=== PATIENT | male | born 1955 | race Caucasian/White ===

== ENCOUNTER → 2017-08-12 | Outpatient (CLI) | payer BC ==
[2017-08-12 14:54] LABS: ALT 28 U/L (21-72); AST 20 U/L (17-59); Cholesterol 210 mg/dL (<200); HDL Cholesterol 58 mg/dL (40-60); LDL Cholesterol,Calculated 120 mg/dL (0-99); Triglycerides 159 mg/dL (<150)
== END | disposition home or self-care (01) ==
LOC: LABWHC1 14:11
PROVIDERS: ATTEND Internal Medicine Cardiovascular Disease
DX: E78.2 Mixed hyperlipidemia (principal)
CPT/HCPCS: 36415; 80061; 84450; 84460

== ENCOUNTER 2018-05-20 08:29 | Emergency (ER) | payer BC ==
[2018-05-20 08:33] VITALS: BP 156/75; PULSE 92; RESP 22; TEMP 97.9
--- NOTE | 2018-05-20 08:48 | ED ---
Male Urogenital HPI - General Chief complaint: Urogenital Stated complaint: Unable to urinate Time Seen by Provider: 05/20/18 08:46 Source: patient, RN notes reviewed, old records reviewed Mode of arrival: ambulatory Limitations: no limitations - History of Present Illness Initial comments: This is a 63-year-old male the ER for evaluation. Patient was seen in the ER for evaluation, patient here for evaluation of inability urinate, urinary retention has history of prostate illness or issues. Patient complaining of severe abdominal pain, symptoms started last night worsening throughout the day. MD Complaint: testicle pain, other (Abdominal pain) -: hour(s) Location: abdomen Radiation: none Severity: moderate Severity scale (1-10): 7 Quality: sharp Consistency: constant Improves with: none new medication Reports: denies other symptoms - Related Data Home Medications Medication Instructions Recorded Confirmed HYDROcodone/APAP 5-325MG [[place] 1 tab PO BID PRN 12/03/15 05/20/18 5-325] Lisinopril [Zestril] 10 mg PO DAILY 12/03/15 05/20/18 Metoprolol Tartrate [Lopressor] 12.5 mg PO HS 12/03/15 05/20/18 Nitroglycerin Sl Tabs [Nitrostat] 0.4 mg SUBLINGUAL Q5M PRN 12/03/15 05/20/18 Tamsulosin HCl [Flomax] 0.4 mg PO DAILY 12/03/15 05/20/18 Ezetimibe [Zetia] 10 mg PO DAILY 05/20/18 05/20/18 Multivit-Min/FA/Lycopen/Lutein 1 tab PO DAILY 05/20/18 05/20/18 [Centrum Silver Tablet] Rosuvastatin Calcium [Crestor] 40 mg PO HS 05/20/18 05/20/18 Allergies Allergy/AdvReac Type Severity Reaction Status Date / Time atorvastatin calcium Allergy Rash/Hives Verified 05/20/18 08:48 [From Lipitor] loratadine [From Claritin] Allergy Rash/Hives Verified 05/20/18 08:48 Review of Systems ROS Statement: Those systems with pertinent positive or pertinent negative responses have been documented in the HPI. ROS Other: All systems not noted in ROS Statement are negative. Past Medical History Past Medical History: Coronary Artery Disease (CAD), Cancer, GERD/Reflux, Hyperlipidemia, Hypertension, Myocardial Infarction ([place]), Mitral Valve Prolapse (MVP), Osteoarthritis (OA), Prostate Disorder Additional Past Medical History / Comment(s): L shoulder . Has had many broken bones in the past. Hx. skin cancer. Last Myocardial Infarction Date:: 2008 History of Any Multi-Drug Resistant Organisms: None Reported Past Surgical History: Heart Catheterization With Stent, Orthopedic Surgery Additional Past Surgical History / Comment(s): R hip replacement, 2 heart stents in 2008. Skin cancer removed from back. Past Anesthesia/Blood Transfusion Reactions: No Reported Reaction Date of Last Stent Placement:: 2008 Past Psychological History: No Psychological Hx Reported Smoking Status: Former smoker Past Alcohol Use History: Daily Past Drug Use History: None Reported - Past Family History Mother Family Medical History: No Reported History General Exam Limitations: no limitations General appearance: alert, in no apparent distress Head exam: Present: atraumatic, normocephalic, normal inspection Eye exam: Present: normal appearance, PERRL, EOMI. Absent: scleral icterus, conjunctival injection, periorbital swelling ENT exam: Present: normal exam, mucous membranes moist Neck exam: Present: normal inspection. Absent: tenderness, meningismus, lymphadenopathy Respiratory exam: Present: normal lung sounds bilaterally. Absent: respiratory distress, wheezes, rales, rhonchi, stridor Cardiovascular Exam: Present: regular rate, normal rhythm, normal heart sounds. Absent: systolic murmur, diastolic murmur, rubs, gallop, clicks GI/Abdominal exam: Present: soft, normal bowel sounds. Absent: distended, tenderness, guarding, rebound, rigid Extremities exam: Present: normal inspection, full ROM, normal capillary refill. Absent: tenderness, pedal edema, joint swelling, calf tenderness Back exam: Present: normal inspection Neurological exam: Present: alert, oriented X3, CN II-XII intact Psychiatric exam: Present: normal affect, normal mood Skin exam: Present: warm, dry, intact, normal color. Absent: rash Course Vital Signs 05/20/18 08:30 Temperature 97.9 F Pulse Rate 92 Respiratory 22 Rate Blood Pressure 156/75 O2 Sat by Pulse 98 Oximetry - Reevaluation(s) Reevaluation #1: Patient has Walter placed and can be discharged home with greater than 1 L out currently, patient placed on leg bag of Medical Decision Making - Medical Decision Making 63 male the ER for evaluation. Patient does say for evaluation of abdominal pain urinary retention. The 1000 and Walter bag is replaced, patient can be discharged home - Lab Data Lab Results 05/20/18 Range/Units 09:11 Urine Color Light Yellow Urine Appearance Clear (Clear) Urine pH 5.0 (5.0-8.0) Ur Specific [place] 1.007 (1.001-1.035) Urine Protein Negative (Negative) Urine Glucose (UA) Negative (Negative) Urine Ketones Negative (Negative) Urine Blood Moderate H (Negative) Urine Nitrite Negative (Negative) Urine Bilirubin Negative (Negative) Urine Urobilinogen <2.0 (<2.0) mg/dL Ur Leukocyte Esterase Negative (Negative) Urine RBC 26 H (0-5) /hpf Urine WBC 1 (0-5) /hpf Urine Mucus Rare H (None) /hpf Disposition Clinical Impression: Acute retention of urine Disposition: HOME SELF-CARE Condition: Good Instructions: Urinary Retention in Men (ED) Is patient prescribed a controlled substance at d/c from ED?: No Referrals: Daniel Shearer MD [STAFF PHYSICIAN] - 1-2 days
[2018-05-20 09:41] LABS: Appearance,Urine Clear (Clear); Bilirubin,Urine Negative (Negative); Blood,Urine Moderate (Negative); Color,Urine Light Yellow; Glucose,Urine (UA) Negative (Negative); Ketones,Urine Negative (Negative); Leukocyte Esterase,Urine Negative (Negative); Mucus,Urine Rare /hpf; Nitrite,Urine Negative (Negative); Protein,Urine Negative (Negative); RBC,Urine 26 /hpf (0-5); Specific Gravity,Urine 1.007 (1.001-1.035); Urobilinogen,Urine <2.0 mg/dL (<2.0); WBC,Urine 1 /hpf (0-5)
== END 2018-05-20 09:44 | disposition home or self-care (01) ==
LOC: EC 08:29
DX: R33.9 Retention of urine, unspecified (principal); R10.9 Unspecified abdominal pain; N50.819 Testicular pain, unspecified; E78.5 Hyperlipidemia, unspecified; I10 Essential (primary) hypertension; I25.10 Atherosclerotic heart disease of native coronary artery without angina pectoris; M19.90 Unspecified osteoarthritis, unspecified site; N40.1 Benign prostatic hyperplasia with lower urinary tract symptoms; I25.2 Old myocardial infarction; Z87.891 Personal history of nicotine dependence; Z88.8 Allergy status to other drugs, medicaments and biological substances; Z79.899 Other long term (current) drug therapy; Z96.641 Presence of right artificial hip joint; Z85.828 Personal history of other malignant neoplasm of skin; Z98.890 Other specified postprocedural states; Z95.818 Presence of other cardiac implants and grafts
CPT/HCPCS: 51702; 81001; 99284

== ENCOUNTER → 2019-06-02 | Outpatient (CLI) | payer BC | END | disposition home or self-care (01) | LOC: LABWHC1 12:31 | PROVIDERS: ATTEND Internal Medicine Cardiovascular Disease | DX: I25.10 Atherosclerotic heart disease of native coronary artery without angina pectoris (principal) | CPT/HCPCS: 36415; 83704 ==

== ENCOUNTER → 2019-07-04 | Outpatient (CLI) | payer BC ==
[2019-07-04 13:40] LABS: HCT 46.2 % (39.0-53.0); HGB 15.3 gm/dL (13.0-17.5); MCH 29.3 pg (25.0-35.0); MCHC 33.2 g/dL (31.0-37.0); MCV 88.4 fL (80.0-100.0); Mean Platelet Volume 6.6; Platelet Count 261 k/uL (150-450); RBC 5.22 m/uL (4.30-5.90); RDW 12.3 % (11.5-15.5); WBC 8.9 k/uL (3.8-10.6)
[2019-07-04 14:04] LABS: African American GFR (CKD) >90 (>60 ml/min/1.73 sqM); Anion Gap 9 mmol/L; Blood Urea Nitrogen 16 mg/dL (9-20); Carbon Dioxide 27 mmol/L (22-30); Chloride 105 mmol/L (98-107); Non-African American GFR(CKD) 83 (>60 ml/min/1.73 sqM); Potassium 4.9 mmol/L (3.5-5.1); Sodium 141 mmol/L (137-145)
== END | disposition home or self-care (01) ==
LOC: LABPAT 12:32
PROVIDERS: ATTEND Internal Medicine Cardiovascular Disease
DX: Z01.812 Encounter for preprocedural laboratory examination (principal); I49.3 Ventricular premature depolarization
CPT/HCPCS: 36415; 80051; 82565; 84520; 85027

== ENCOUNTER 2019-07-13 10:27 | Day surgery (SDC) | payer BC ==
[2019-07-08 10:32] VITALS: BMI 27.3
[~2019-07-13 10:27] MED LIST: ALPRAZolam 0.25 MG TAB PO PRN; ALPRAZolam 0.5 MG TAB PO PRN; ASPIRIN 325 MG TAB PO STA; NITROGLYCERIN SL TABS 0.4 MG TAB SUBLINGUAL PRN; SODIUM CHLORIDE 0.9% 1,000 ML in EMPTY BAG 1 BAG IV ONE
[2019-07-13] MEDS ORDERED: SODIUM CHLORIDE 0.9% 1,000 ML IV ONE (11:10)
[2019-07-13] MEDS ORDERED: fentaNYL (PF) 50 MCG/ML 2 ML AMP ONE ×2 (11:24→12:32)
[2019-07-13] MEDS ORDERED: BENZOCAINE SPRAY 1 CAN TOPICAL ONE (11:37)
[2019-07-13] MEDS: fentaNYL (PF) 50 MCG/ML 2 ML AMP IV ONE ×2 (11:49→13:00)
[2019-07-13] MEDS ORDERED: MIDAZOLAM 2 MG/2 ML VIAL IV ONE ×3 (11:49→13:06)
[2019-07-13] MEDS ORDERED: LIDOCAINE 1% INJ 10MG/ML (20 ML MDV) ONE (12:14)
--- NOTE | 2019-07-13 12:25 | ECHOT ---
TRANSESOPHAGEAL ECHOCARDIOGRAM This transesophageal echocardiogram was performed to assess the patient's aortic regurgitation. Patient was given intravenous sedation with Versed and fentanyl and transesophageal echocardiogram was performed without any complications. Left ventricular chamber is dilated with evidence of global hypokinesia with ejection fraction of 30%-35%. Mitral valve morphology is normal. Aortic valve is sclerotic and calcified. It is suggestive of bicuspid aortic valve with normal opening. The color Doppler study shows evidence of moderate to severe aortic regurgitation. There is a mild mitral regurgitation. Left atrium is mildly enlarged. There is no evidence of thrombus in left atrial appendage. Interatrial septum is intact. There is no evidence of any PFO. There is a mild atherosclerotic plaque noted in the descending thoracic aorta as well as the arch of aorta. IMPRESSION: 1. The aortic valve is thickened and sclerotic and is suggestive of bicuspid aortic valve. There is a moderate to severe aortic regurgitation. 2. Left ventricular chamber is dilated with moderate to severe degree of global hypokinesia with estimated ejection fraction in the range of 30%-35%. 3. Mild mitral regurgitation is noted. 4. Interatrial septum is intact. There is no evidence of any patent foramen oval by saline contrast study. 5. There is mild atherosclerotic plaque noted in the descending thoracic aorta. MMODL / IJN: [id number] /
[2019-07-13] MEDS: MIDAZOLAM 2 MG/2 ML VIAL IV ONE ×2 (12:46→12:59)
[2019-07-13] MEDS ORDERED: LIDOCAINE 1% INJ 10MG/ML (20 ML MDV) SQ ONE (12:47)
[2019-07-13] MEDS ORDERED: fentaNYL (PF) 50 MCG/ML 2 ML AMP IV ONE (13:00)
[2019-07-13 13:27] LABS: O2 Sat Blood Gas 95.6 %
[2019-07-13 13:29] LABS: O2 Sat Blood Gas 71.7 %
[2019-07-13 13:31] LABS: O2 Sat Blood Gas 74.9 %
[2019-07-13] MEDS ORDERED: IOPAMIDOL-370 50ML BTL INJ ONE (13:31)
[2019-07-13] MEDS ORDERED: IOPAMIDOL-370 125ML BTL INJ ONE (13:31)
[2019-07-13] MEDS ORDERED: IV FLUID CONTINUATION 500 ML IV ONE (13:32)
--- NOTE | 2019-07-13 14:11 | CC ---
CARDIAC CATHETERIZATION REPORT This patient has a known CAD with a prior history of stent to RCA about 10 years ago. The patient was recently seen in the office with symptoms of palpitations. Patient was found that his overall left ventricular systolic function was decreased and patient had a moderate to severe aortic regurgitation. Patient underwent transesophageal echocardiogram which is suggestive of bicuspid aortic wall and moderate to severe aortic regurgitation and a right and left heart catheterization was performed. PROCEDURE: The right groin was prepped and draped in the usual manner and the skin was infiltrated with 2% Xylocaine. The right femoral artery was entered using Seldinger technique, a #6- [place] sheath was placed in. Subsequently, right femoral vein was entered using Seldinger technique with a micropuncture needle and right. #8-[place] sheath was placed in. Selective coronary angiography was then performed in multiple projections. Patient tolerated the procedure well. HEMODYNAMICS: The mean right atrial pressure is 2-3 mmHg with an A-wave of 4 and V-wave of 2. Right ventricular systolic pressure is 28 mmHg. End-diastolic pressure is 8-10 mmHg. Pulmonary capillary wedge pressure is 10 mmHg. Pulmonary artery systolic pressure is 28 and end-diastolic pressure is 10 mmHg. The pulmonary artery saturation was 95. PA saturation was 71 and right atrial saturation was 74. The cardiac output by Gen method is 4.33 and by thermodilution was 5.47. Left ventricular end-diastolic pressure was 12 mmHg prior to angiography. No gradient is noted across the aortic valve. The coronary angiography will be repeated in 5 . MMMANUELL / IJN: [id number] /
--- NOTE | 2019-07-13 14:17 | AN ---
ANGIOGRAPHY REPORT Patient's hemodynamics and the procedure were dictated before. The left main coronary artery is normal and patent. LAD is a good caliber blood vessel and gives rise to good size diagonal branch. LAD wraps around the apex. There is minimal irregularity in the proximal and mid LAD. Circumflex coronary artery is technically .but gives rise to a good size obtuse marginal branch. There is mild irregularity noted in the obtuse marginal branch. Right coronary artery is a large caliber blood vessel. It is dominant distribution and is patent at the site of prior stent placement. Aortic root injection was performed. Aortic root is dilated. Ascending aorta and aortic roots are dilated and measures about 5.1 cm 5.1 cm. There is evidence of 4+ aortic regurgitation. FINAL IMPRESSION: This study reveals only minimal coronary artery disease with a mild irregularity in LAD circumflex and right coronary artery. There is evidence of severe aortic regurgitation. Left ventricular systolic function is moderate to severely impaired with ejection fraction of 30%-35% by echocardiogram and the aortic root injection is suggestive of severe aortic valve replacement, severe aortic valve regurgitation. By transesophageal echocardiogram, patient has a bicuspid aortic valve. We will get a surgical opinion for possible aortic root replacement and aortic valve replacement. MMODL / IJN: [id number] /
[2019-07-13] MEDS ORDERED: RX INFO: IV CONTRAST WAS GIVEN 1 EACH MISC MISCELLANE PRN (14:18)
[2019-07-13] MEDS: METOPROLOL TARTRATE 25 MG TAB PO SCH (19:40)
[2019-07-13] MEDS ORDERED: TAMSULOSIN 0.4 MG CAP.ER.24H PO SCH (21:00)
[2019-07-13] MEDS ORDERED: ROSUVASTATIN CALCIUM 40 MG PO SCH (21:00)
[2019-07-14 07:50] VITALS: BP 101/61; PULSE 60; RESP 18; TEMP 97.5
[2019-07-14] MEDS: METOPROLOL TARTRATE 25 MG TAB PO SCH (08:58)
[2019-07-14] MEDS ORDERED: FINASTERIDE 5 MG TAB PO SCH (09:00)
[2019-07-14] MEDS ORDERED: EZETIMIBE 10 MG TAB PO SCH (09:00)
[2019-07-14] MEDS ORDERED: ASPIRIN 81 MG PO SCH (09:00)
[2019-07-14] MEDS ORDERED: LOSARTAN 25 MG TAB PO SCH (09:00)
--- NOTE | 2019-07-14 14:15 | P.DS ---
Providers Attending physician: Prisca Mohr Primary care physician: [facility] Course: This is a pleasant 64-year-old male who came in for elective left/right heart catheterization and DANISH to assess aortic valve. Right heart catheterization for Thursday mean atrial pressure of 2-3 mmHg, right ventricular systolic pressure was 28 mmHg, end-diastolic pressure was 8-10 mmHg, pulmonary capillary wedge pressure was 10 mmHg, pulmonary artery systolic pressure is 28 and end-diastolic pressure was 10, pulmonary artery saturation was 95, PA saturation was 71 and RA saturation was 74. Cardiac output by Gen method is 4.3 and by thermodilution was 5.47. LVEDP was 12. No gradient across the aortic valve. Left heart catheterization revealed minimal coronary artery disease with a mild irregularity in the LAD, circumflex and RCA with evidence of severe aortic regurgitation and ejection fraction 30-35%. DANISH revealed the aortic valve is thickened and sclerotic suggestive of bicuspid aortic valve, moderate to severe aortic regurgitation, left ventricular chamber is dilated with moderate to severe global hypokinesia with EF 30-35%, mild MR and mild atherosclerotic plaque noted in the descending thoracic aorta. He is seen and examined sitting up in the chair in no acute distress. He denies symptoms chest pain, shortness of breath, dizziness or palpitations. Right femoral access site clean, dry and intact with no evidence of bleeding or hematoma. Distal pulses intact and strong. Blood pressure 101/61 heart rate 60 afebrile maintaining oxygen saturation on room air. Currently maintained on Flomax, Lopressor, rosuvastatin, Zetia, losartan, aspirin, Avodart and Ativan when necessary. Stable for discharge from a cardiac perspective. We recommend having an outpatient CT angios of the chest to further assess the aorta. He has been given a written prescription for this to be done early next week. Follow-up in the office with Dr. Mohr July 26 at 10:30. Test result findings were discussed in great detail with the patient and his . Plan - Discharge Summary Discharge Rx Participant: No New Discharge Prescriptions: Continue Tamsulosin HCl [Flomax] 2 cap PO HS Metoprolol Tartrate [Lopressor] 25 mg PO BID Rosuvastatin Calcium [Crestor] 40 mg PO HS Ezetimibe [Zetia] 10 mg PO QAM Losartan [Cozaar] 25 mg PO QAM Aspirin [Adult Low Dose Aspirin EC] 81 mg PO QAM Dutasteride [Avodart] 0.5 mg PO QAM LORazepam [Ativan] 0.5 mg PO DIRECTED PRN PRN Reason: Anxiety Discharge Medication List Metoprolol Tartrate [Lopressor] 25 mg PO BID 12/03/15 [History] Tamsulosin HCl [Flomax] 2 cap PO HS 12/03/15 [History] Ezetimibe [Zetia] 10 mg PO QAM 05/20/18 [History] Rosuvastatin Calcium [Crestor] 40 mg PO HS 05/20/18 [History] Aspirin [Adult Low Dose Aspirin EC] 81 mg PO QAM 07/08/19 [History] Dutasteride [Avodart] 0.5 mg PO QAM 07/08/19 [History] LORazepam [Ativan] 0.5 mg PO DIRECTED PRN 07/08/19 [History] Losartan [Cozaar] 25 mg PO QAM 07/08/19 [History] Follow up Appointment(s)/Referral(s): Prisca Mohr MD [STAFF PHYSICIAN] - 07/26/19 10:30 am (follow up appoinment with Dr. Mohr) Patient Instructions/Handouts: Left Heart Catheterization (DC) Discharge Disposition: HOME SELF-CARE
== END 2019-07-14 11:47 | disposition home or self-care (01) ==
LOC: CATHCVL 10:27 → 1SOBS 13:34 → CATHCVL 07-14 11:47
PROVIDERS: ATTEND Internal Medicine Cardiovascular Disease
DX: I08.0 Rheumatic disorders of both mitral and aortic valves (principal); I25.10 Atherosclerotic heart disease of native coronary artery without angina pectoris; I25.5 Ischemic cardiomyopathy; I25.2 Old myocardial infarction; I70.0 Atherosclerosis of aorta; I10 Essential (primary) hypertension; E78.2 Mixed hyperlipidemia; Z95.5 Presence of coronary angioplasty implant and graft; Z79.82 Long term (current) use of aspirin; Z79.899 Other long term (current) drug therapy; Z88.8 Allergy status to other drugs, medicaments and biological substances
CPT/HCPCS: 93312; 93320; 93325; 93456; 93567; 85018; 82810; C1760; C1894 ×2; C1769 ×2; S0138; J2250; J2001; J3010; Q9967 ×2

== ENCOUNTER → 2019-07-23 | Outpatient (CLI) | payer BC ==
--- NOTE | 2019-07-24 12:16 | CT ---
EXAMINATION TYPE: CT angio chest DATE OF EXAM: 07/23/2019 COMPARISON: None HISTORY: Bicuspid aortic valve. CT DLP: 607.9 mGycm Automated exposure control for dose reduction was used. CONTRAST: CTA scan of the thorax is performed without and with IV Contrast, patient injected with 100 mL of Iso dianelys 370, pulmonary embolism protocol. MIP images are created and reviewed. 3D reconstructed images are created on an independent workstation and reviewed. CT through the aorta performed pre- and posti ntravenous contrast administration FINDINGS: There is a small hiatal hernia. Possible anterior abdominal hernia containing fat anterior to the heart The heart is enlarged. There is left ventricular dilation present. Coronary artery calci fications are present. LUNGS: The lungs are grossly clear, there is no concerning parenchymal mass or nodule identified. T here is no pleural effusion or pneumothorax seen. The tracheobronchial tree is patent. AORTA: Ascending aorta measures approximately 4.5 cm. There is motion artifact at the ascending aort a. Proximal descending aorta measures 2.9 cm. At the level of the hiatus the aorta measures 2.5 cm. MEDIASTINUM: There is satisfactory enhancement of the pulmonary artery and its branches, there is no CT evidence for pulmonary embolism. There are no greater than 1 cm hilar or mediastinal lymph nodes. No pericardial effusion is seen. OTHER: Focus of low-attenuation in the posterior right lobe of the liver shows a peripheral enhancem ent appearance, is indeterminate, possible hemangioma measuring 17 mm. Thoracic spondylosis is presen t. Multilevel vacuum phenomenon present at intervertebral disc levels. Calcified left thyroid nodule was present IMPRESSION: AORTIC ANEURYSM. CARDIOMEGALY DESCRIBED WITH CORONARY ARTERY DISEASE. ADDITIONAL FINDINGS ABOVE. I NDETERMINATE FOCUS WITHIN THE LIVER, CONSIDER FOLLOW-UP.
== END | disposition home or self-care (01) ==
LOC: RADCTMAIN 06:55
PROVIDERS: ATTEND Nurse Practitioner
DX: I71.9 Aortic aneurysm of unspecified site, without rupture (principal); I25.10 Atherosclerotic heart disease of native coronary artery without angina pectoris; I51.7 Cardiomegaly; K44.9 Diaphragmatic hernia without obstruction or gangrene; E04.1 Nontoxic single thyroid nodule; I35.0 Nonrheumatic aortic (valve) stenosis
CPT/HCPCS: 71275; Q9967

== ENCOUNTER → 2019-12-28 | Outpatient (CLI) | payer BC ==
[2019-12-29 01:25] LABS: African American GFR (CKD) 82.4 (60.0-200.0); Anion Gap 6.2 mmol/L (4.00-12.00); BUN/Creat Ratio 16.36 Ratio (12.00-20.00); Calcium 9.3 mg/dL (8.7-10.3); Carbon Dioxide 27.8 mmol/L (21.6-31.8); Magnesium 2.2 mg/dL (1.5-2.4); Non-African American GFR(CKD) 71.1 (60.0-200.0); Potassium 4.2 mmol/L (3.5-5.5)
== END | disposition home or self-care (01) ==
LOC: LABWHC1 14:37
PROVIDERS: ATTEND Nurse Practitioner Adult Health
DX: I10 Essential (primary) hypertension (principal)
CPT/HCPCS: 36415; 80048; 83735

== ENCOUNTER 2020-03-15 10:19 | Inpatient (IN) | payer BC, OTHER ==
[2020-03-15] MEDS ORDERED: SODIUM CHLORIDE 0.9% 1,000 ML IV ONE (10:28)
[2020-03-15] MEDS ORDERED: ACETAMINOPHEN TAB 325 MG TAB PO STA ×2 (10:28→12:29)
[2020-03-15 11:06] LABS: Basophils # (A) 0.1 k/uL (0-0.2); Basophils % (A) 1 %; Eosinophils # (A) 0.1 k/uL (0-0.7); Eosinophils % (A) 1 %; HCT 47.6 % (39.0-53.0); HGB 15.6 gm/dL (13.0-17.5); Lymphocytes # (A) 0.6 k/uL (1.0-4.8); Lymphocytes % (A) 8 %; MCH 26.9 pg (25.0-35.0); MCHC 32.8 g/dL (31.0-37.0); MCV 82.1 fL (80.0-100.0); Mean Platelet Volume 6.3; Monocytes # (A) 0.3 k/uL (0-1.0); Monocytes % (A) 4 %; Neutrophils # (A) 6.7 k/uL (1.3-7.7); Neutrophils % (A) 85 %; Platelet Count 163 k/uL (150-450); RBC 5.79 m/uL (4.30-5.90); RDW 14.3 % (11.5-15.5); WBC 7.9 k/uL (3.8-10.6)
[2020-03-15 11:20] LABS: Albumin 4.3 g/dL (3.5-5.0); Calcium 8.9 mg/dL (8.4-10.2); Potassium 4.3 mmol/L (3.5-5.1); Total Bilirubin 0.9 mg/dL (0.2-1.3); Total Protein 7.6 g/dL (6.3-8.2)
[2020-03-15] MEDS ORDERED: IBUPROFEN 600 MG TAB PO STA (11:39)
[2020-03-15 11:53] LABS: Appearance,Urine Clear (Clear); Bilirubin,Urine Negative (Negative); Blood,Urine Moderate (Negative); Color,Urine Yellow; Glucose,Urine (UA) Negative (Negative); Ketones,Urine 4+ (Negative); Leukocyte Esterase,Urine Negative (Negative); Mucus,Urine Moderate /hpf; Nitrite,Urine Negative (Negative); Protein,Urine 2+ (Negative); RBC,Urine 6 /hpf (0-5); Specific Gravity,Urine 1.026 (1.001-1.035); Urobilinogen,Urine <2.0 mg/dL (<2.0); WBC,Urine 1 /hpf (0-5)
[2020-03-15] MEDS ORDERED: ASPIRIN 81 MG PO STA (12:09)
[2020-03-15] MEDS ORDERED: SODIUM CHLORIDE 0.9% 500 ML 500 ML IV ONE (12:10)
[2020-03-15] MEDS: SODIUM CHLORIDE 0.9% 1,000 ML IV SCH ×2 (12:18→20:34)
--- NOTE | 2020-03-15 12:19 | ED ---
Fever HPI - General Chief Complaint: Fever Stated Complaint: Flu symptoms Time Seen by Provider: 03/15/20 10:27 Source: patient Mode of arrival: ambulatory Limitations: no limitations - History of Present Illness Initial Comments: 65-year-old male presenting today for chief complain of allover body aches, fever. Patient states he has had a fever for the past 2 days as well as achiness all over his body. Patient denies any chest pain shortness of breath he denies any rashes lesions on the body he denies any abdominal pain and rectal pain he denies any cough or upper respiratory symptoms denies sore throat or ear pain. Patient denies any recent travels or sick contacts. patient denies IVDU. Patient denies exposure to covid. Patient complaining of chills on arrival. Patient has no additional complaints. - Related Data Home Medications Medication Instructions Recorded Confirmed Tamsulosin HCl [Flomax] 0.8 mg PO HS 12/03/15 03/15/20 Ezetimibe [Zetia] 10 mg PO QAM 05/20/18 03/15/20 Rosuvastatin Calcium [Crestor] 40 mg PO HS 05/20/18 03/15/20 Dutasteride [Avodart] 0.5 mg PO QAM 07/08/19 03/15/20 LORazepam [Ativan] 0.5 mg PO BID PRN 07/08/19 03/15/20 HYDROcodone/APAP 5-325MG [[place] 1 tab PO Q6HR PRN 03/15/20 03/15/20 5-325] Valsartan [Diovan] 160 mg PO DAILY 03/15/20 03/15/20 carvediloL [Coreg] 6.25 mg PO BID 03/15/20 03/15/20 Allergies Allergy/AdvReac Type Severity Reaction Status Date / Time atorvastatin calcium Allergy Rash/Hives Verified 03/15/20 10:22 [From Lipitor] loratadine [From Claritin] Allergy Rash/Hives Verified 03/15/20 10:22 Review of Systems ROS Statement: Those systems with pertinent positive or pertinent negative responses have been documented in the HPI. ROS Other: All systems not noted in ROS Statement are negative. Past Medical History Past Medical History: Coronary Artery Disease (CAD), Cancer, GERD/Reflux, Hyperlipidemia, Hypertension, Myocardial Infarction ([place]), Mitral Valve Prolapse ([place]), Osteoarthritis (OA), Prostate Disorder Additional Past Medical History / Comment(s): L shoulder . Has had many broken bones in the past. Hx. skin cancer. Last Myocardial Infarction Date:: 2008 History of Any Multi-Drug Resistant Organisms: None Reported Past Surgical History: Coronary Bypass/CABG Additional Past Surgical History / Comment(s): R hip replacement, 2 heart stents in 2009. Skin cancer removed from back. Past Anesthesia/Blood Transfusion Reactions: No Reported Reaction Date of Last Stent Placement:: 2008 Past Psychological History: No Psychological Hx Reported Smoking Status: Never smoker Past Alcohol Use History: Daily Past Drug Use History: Marijuana - Past Family History Mother Family Medical History: No Reported History Father Family Medical History: Myocardial Infarction ([place]) General Exam - General Exam Comments Initial Comments: General: The patient is awake and alert, in no distress Eye: +3 mm pupils are equal, round and reactive to light, extra-ocular movements are intact. No nystagmus. There is normal conjunctiva bilaterally. No signs of icterus. Ears, nose, mouth and throat: There are moist mucous membranes and no oral lesions. oroph Neck: The neck is supple, there is no tenderness or JVD. Cardiovascular: There is a regular rate and rhythm. No murmur, rub or gallop is appreciated. Respiratory: Lungs are clear to auscultation, respirations are non-labored, breath sounds are equal. No wheezes, stridor, rales, or rhonchi. Gastrointestinal: Soft, non-distended, non-tender abdomen without masses or organomegaly noted. There is no rebound or guarding present. Musculoskeletal: Normal ROM, no tenderness. Strength 5/5. Sensation intact. Radial and DP pulses equal bilaterally 2+. Neurological: A&O x 3. CN II-XII intact grossly, There are no obvious motor or sensory deficits. Coordination appears grossly intact. Speech is normal. Skin: Skin is warm and dry and no rashes or lesions are noted. No LE edema. Psychiatric: Cooperative, appropriate mood & affect, normal judgment. Limitations: no limitations Course Vital Signs 03/15/20 03/15/20 10:22 10:56 Temperature 102.9 F H 102.6 F H Pulse Rate 99 102 H Respiratory 18 18 Rate Blood Pressure 162/92 138/59 O2 Sat by Pulse 97 100 Oximetry Medical Decision Making - Medical Decision Making 65yo male presenting with only complaints of all over body aches and fevers. Denies chest pain/SOB. Denies neck stiffness or URI symptoms. Entire body examined without localizing findings. Troponin elevated. No leukocytosis. I have concern for myocarditis, given fevers and flu like symptoms without any localizing symptoms. Echo ordered. EKG no acute changes. Lactic acid WNL. Patient HR and temperature have remained elevated, patient has received multiple antipyretics in the ER. Dr. Ackerman spoke with Dr. Garrett who is agreeable to admission Ventricular rate 88 bpm, SD interval 158ms, QRS catholic 112 ms, QT/QTC 360/435 ms (normal sinus there is no ST elevation or depression appreciated. There are some Q waves noted on the EKG - Lab Data Result diagrams: 03/15/20 10:39 03/15/20 10:39 Lab Results 03/15/20 03/15/20 03/15/20 Range/Units 10:39 10:39 10:39 WBC 7.9 (3.8-10.6) k/uL RBC 5.79 (4.30-5.90) m/uL Hgb 15.6 (13.0-17.5) gm/dL Hct 47.6 (39.0-53.0) % MCV 82.1 (80.0-100.0) fL MCH 26.9 (25.0-35.0) pg MCHC 32.8 (31.0-37.0) g/dL RDW 14.3 (11.5-15.5) % Plt Count 163 (150-450) k/uL Neutrophils % 85 % Lymphocytes % 8 % Monocytes % 4 % Eosinophils % 1 % Basophils % 1 % Neutrophils # 6.7 (1.3-7.7) k/uL Lymphocytes # 0.6 L (1.0-4.8) k/uL Monocytes # 0.3 (0-1.0) k/uL Eosinophils # 0.1 (0-0.7) k/uL Basophils # 0.1 (0-0.2) k/uL Sodium 133 L (137-145) mmol/L Potassium 4.3 (3.5-5.1) mmol/L Chloride 100 (98-107) mmol/L Carbon Dioxide 21 L (22-30) mmol/L Anion Gap 12 mmol/L BUN 14 (9-20) mg/dL Creatinine 1.07 (0.66-1.25) mg/dL Est GFR (CKD-EPI)AfAm 85 (>60 ml/min/1.73 sqM) Est GFR (CKD-EPI)NonAf 74 (>60 ml/min/1.73 sqM) Glucose 119 H (74-99) mg/dL Plasma Lactic Acid [place] 1.8 (0.7-2.0) mmol/L Calcium 8.9 (8.4-10.2) mg/dL Total Bilirubin 0.9 (0.2-1.3) mg/dL AST 86 H (17-59) U/L ALT 59 H (4-49) U/L Alkaline Phosphatase 51 (38-126) U/L Troponin I (0.000-0.034) ng/mL Total Protein 7.6 (6.3-8.2) g/dL Albumin 4.3 (3.5-5.0) g/dL Amylase 55 (30-110) U/L Lipase 166 (23-300) U/L Urine Color Urine Appearance (Clear) Urine pH (5.0-8.0) Ur Specific [place] (1.001-1.035) Urine Protein (Negative) Urine Glucose (UA) (Negative) Urine Ketones (Negative) Urine Blood (Negative) Urine Nitrite (Negative) Urine Bilirubin (Negative) Urine Urobilinogen (<2.0) mg/dL Ur Leukocyte Esterase (Negative) Urine RBC (0-5) /hpf Urine WBC (0-5) /hpf Urine Mucus (None) /hpf Influenza Type A RNA (Not Detectd) Influenza Type B (PCR) (Not Detectd) 03/15/20 03/15/20 03/15/20 Range/Units 10:39 10:46 11:10 WBC (3.8-10.6) k/uL RBC (4.30-5.90) m/uL Hgb (13.0-17.5) gm/dL Hct (39.0-53.0) % MCV (80.0-100.0) fL MCH (25.0-35.0) pg MCHC (31.0-37.0) g/dL RDW (11.5-15.5) % Plt Count (150-450) k/uL Neutrophils % % Lymphocytes % % Monocytes % % Eosinophils % % Basophils % % Neutrophils # (1.3-7.7) k/uL Lymphocytes # (1.0-4.8) k/uL Monocytes # (0-1.0) k/uL Eosinophils # (0-0.7) k/uL Basophils # (0-0.2) k/uL Sodium (137-145) mmol/L Potassium (3.5-5.1) mmol/L Chloride (98-107) mmol/L Carbon Dioxide (22-30) mmol/L Anion Gap mmol/L BUN (9-20) mg/dL Creatinine (0.66-1.25) mg/dL Est GFR (CKD-EPI)AfAm (>60 ml/min/1.73 sqM) Est GFR (CKD-EPI)NonAf (>60 ml/min/1.73 sqM) Glucose (74-99) mg/dL Plasma Lactic Acid [place] (0.7-2.0) mmol/L Calcium (8.4-10.2) mg/dL Total Bilirubin (0.2-1.3) mg/dL AST (17-59) U/L ALT (4-49) U/L Alkaline Phosphatase (38-126) U/L Troponin I 0.580 H* (0.000-0.034) ng/mL Total Protein (6.3-8.2) g/dL Albumin (3.5-5.0) g/dL Amylase (30-110) U/L Lipase (23-300) U/L Urine Color Yellow Urine Appearance Clear (Clear) Urine pH 6.0 (5.0-8.0) Ur Specific [place] 1.026 (1.001-1.035) Urine Protein 2+ H (Negative) Urine Glucose (UA) Negative (Negative) Urine Ketones 4+ H (Negative) Urine Blood Moderate H (Negative) Urine Nitrite Negative (Negative) Urine Bilirubin Negative (Negative) Urine Urobilinogen <2.0 (<2.0) mg/dL Ur Leukocyte Esterase Negative (Negative) Urine RBC 6 H (0-5) /hpf Urine WBC 1 (0-5) /hpf Urine Mucus Moderate H (None) /hpf Influenza Type A RNA Not Detected (Not Detectd) Influenza Type B (PCR) Not Detected (Not Detectd) Disposition Clinical Impression: Fever, Elevated troponin, Tachycardia Disposition: ADMITTED IP TO THIS [facility] Condition: Stable Is patient prescribed a controlled substance at d/c from ED?: No Referrals: Kip Garrett MD [Primary Care Provider] - 1-2 days Time of Disposition: 12:22 Decision to Admit Reason: Admit from EC Decision Date: 03/15/20 Decision Time: 12:22
[2020-03-15] MEDS ORDERED: NALOXONE 0.4 MG/ML 1 ML VIAL IV PRN (12:22)
[2020-03-15] MEDS ORDERED: PIPERACILLIN-TAZOBACTAM 3.375 GM in SODIUM CHLORIDE 0.9% 100 ML IVPB STA (12:48)
[2020-03-15] MEDS: ACETAMINOPHEN TAB 325 MG TAB PO PRN ×3 (12:55→21:22)
--- NOTE | 2020-03-15 13:51 | XR ---
EXAMINATION TYPE: XR chest 2V DATE OF EXAM: 03/15/2020 COMPARISON: NONE HISTORY: Shortness of breath TECHNIQUE: Frontal and lateral views of the chest are obtained. FINDINGS: Scattered senescent parenchymal changes noted. Hyperinflation compatible with COPD. No evidence for infiltrate. No evidence for atelectasis. Heart size is stable. Mediastinal structures are stable and grossly unremarkable. No evidence for hilar prominence. Degenerative changes dorsal spine. IMPRESSION: 1. No evidence for acute pulmonary disease.
[2020-03-15] MEDS ORDERED: LORazepam 0.5 MG TAB PO PRN (19:09)
[2020-03-15] MEDS ORDERED: HYDROcodone/APAP 5-325MG 1 EACH TAB PO PRN (19:09)
[2020-03-15] MEDS: carvediloL 6.25 MG TAB PO SCH (20:24)
[2020-03-15] MEDS ORDERED: PATIENT'S OWN (Rosuvastatin Calcium [Crestor] 40 MG Tablet) PO SCH (21:00)
[2020-03-15] MEDS ORDERED: TAMSULOSIN 0.4 MG CAP.ER.24H PO SCH (21:00)
[2020-03-16] MEDS: ACETAMINOPHEN TAB 325 MG TAB PO PRN ×2 (03:27→06:53)
[2020-03-16] MEDS: SODIUM CHLORIDE 0.9% 1,000 ML IV SCH ×2 (06:23→15:31)
[2020-03-16] MEDS: carvediloL 6.25 MG TAB PO SCH ×2 (06:30→17:28)
--- NOTE | 2020-03-16 08:24 | P.HPIM ---
History of Present Illness H&P Date: 03/16/20 Chief Complaint: Febrile. , This is a history and physical 65-year-old white male whose for the last 3 days has been struggling with spiking temperatures. He was essentially brought into the emergency room with significant fever. No delirium is noted. However given his initial evaluation and elevated troponin, he is started on appropriate workup for sepsis and coronary disease. The patient has had positive blood culture of gram-positive cocci in clusters and is started on empiric antibiotics. However, there is no overt source given that his urine and chest x-ray are nominal Review of Systems Constitutional: Denies chills, Denies fever Eyes: denies blurred vision, denies pain Ears, nose, mouth and throat: Denies headache, Denies sore throat Cardiovascular: Denies chest pain Respiratory: Denies cough Gastrointestinal: Denies abdominal pain, Denies diarrhea, Denies nausea, Denies vomiting Musculoskeletal: Denies myalgias Neurological: Denies numbness, Denies weakness Past Medical History Past Medical History: Coronary Artery Disease (CAD), Cancer, GERD/Reflux, Hyperlipidemia, Hypertension, Myocardial Infarction ([place]), Mitral Valve Prolapse (MVP), Osteoarthritis (OA), Prostate Disorder Additional Past Medical History / Comment(s): L shoulder . Has had many broken bones in the past. Hx. skin cancer. Last Myocardial Infarction Date:: 2008 History of Any Multi-Drug Resistant Organisms: None Reported Past Surgical History: Coronary Bypass/CABG, Joint Replacement Additional Past Surgical History / Comment(s): R hip replacement, 2 heart stents in 2008. Skin cancer removed from back. Artico vavle replacement and Artico artry at [facility] November 2019 Past Anesthesia/Blood Transfusion Reactions: No Reported Reaction Date of Last Stent Placement:: 2008 Past Psychological History: No Psychological Hx Reported Smoking Status: Never smoker Past Alcohol Use History: Daily Additional Past Alcohol Use History / Comment(s): Smoked only a short time as a teenager. Past Drug Use History: Marijuana - Past Family History Mother Family Medical History: No Reported History Father Family Medical History: Myocardial Infarction ([place]) Medications and Allergies Home Medications Medication Instructions Recorded Confirmed Type Tamsulosin HCl [Flomax] 0.8 mg PO HS 12/03/15 03/15/20 History Ezetimibe [Zetia] 10 mg PO QAM 05/20/18 03/15/20 History Rosuvastatin Calcium [Crestor] 40 mg PO HS 05/20/18 03/15/20 History Dutasteride [Avodart] 0.5 mg PO QAM 07/08/19 03/15/20 History LORazepam [Ativan] 0.5 mg PO BID PRN 07/08/19 03/15/20 History HYDROcodone/APAP 5-325MG [[place] 1 tab PO Q6HR PRN 03/15/20 03/15/20 History 5-325] Valsartan [Diovan] 160 mg PO DAILY 03/15/20 03/15/20 History carvediloL [Coreg] 6.25 mg PO BID 03/15/20 03/15/20 History Allergies Allergy/AdvReac Type Severity Reaction Status Date / Time atorvastatin calcium Allergy Rash/Hives Verified 03/15/20 10:22 [From Lipitor] loratadine [From Claritin] Allergy Rash/Hives Verified 03/15/20 10:22 Physical Exam Vitals: Vital Signs Temp Pulse Pulse Resp BP BP Pulse Ox 03/16/20 03:33 98 F 84 18 138/76 96 03/15/20 23:53 98 F 64 19 98/55 97 03/15/20 20:00 99.1 F 85 19 106/60 96 03/15/20 17:04 98.4 F 77 18 137/70 97 03/15/20 16:59 98.4 F 77 18 137/70 97 03/15/20 16:00 99.2 F 72 18 128/72 98 03/15/20 15:56 98.3 F 75 18 142/85 99 03/15/20 13:59 99 F 80 18 121/69 96 03/15/20 12:30 102.8 F H 89 18 143/91 96 03/15/20 10:56 102.6 F H 102 H 18 138/59 100 03/15/20 10:22 102.9 F H 99 18 162/92 97 Intake and Output 03/15/20 03/16/20 03/16/20 22:59 06:59 14:59 Intake Total 130 Output Total 700 Balance 130 -700 Intake: Oral 130 Output: Urine 700 Other: Voiding Method Toilet Toilet # Voids 2 Weight 98 kg - Constitutional General appearance: mild distress - EENT Eyes: EOMI - Neck Neck: no lymphadenopathy - Respiratory Respiratory: bilateral: CTA - Cardiovascular Rhythm: regular Heart sounds: normal: S1, S2 Abnormal Heart Sounds: no S3 Gallop - Gastrointestinal General gastrointestinal: soft, no tenderness - Integumentary Integumentary: cellulitis - Musculoskeletal Musculoskeletal: no generalized weakness - Psychiatric Psychiatric: A&O x's 3, no intact judgment & insight Results CBC & Chem 7: 03/15/20 10:39 03/15/20 10:39 Labs: Abnormal Lab Results - Last 24 Hours (Table) 03/15/20 03/15/20 03/15/20 Range/Units 10:39 10:39 10:39 Lymphocytes # 0.6 L (1.0-4.8) k/uL Sodium 133 L (137-145) mmol/L Carbon Dioxide 21 L (22-30) mmol/L Glucose 119 H (74-99) mg/dL AST 86 H (17-59) U/L ALT 59 H (4-49) U/L Troponin I 0.580 H* (0.000-0.034) ng/mL Urine Protein (Negative) Urine Ketones (Negative) Urine Blood (Negative) Urine RBC (0-5) /hpf Urine Mucus (None) /hpf 03/15/20 Range/Units 11:10 Lymphocytes # (1.0-4.8) k/uL Sodium (137-145) mmol/L Carbon Dioxide (22-30) mmol/L Glucose (74-99) mg/dL AST (17-59) U/L ALT (4-49) U/L Troponin I (0.000-0.034) ng/mL Urine Protein 2+ H (Negative) Urine Ketones 4+ H (Negative) Urine Blood Moderate H (Negative) Urine RBC 6 H (0-5) /hpf Urine Mucus Moderate H (None) /hpf Microbiology - Last 24 Hours (Table) 03/15/20 10:39 Blood Culture Gram Stain - Preliminary Blood 03/15/20 10:39 Blood Culture - Final Blood Thrombosis Risk Factor Assmnt - Choose All That Apply Each Factor Represents 1 point: Obesity (BMI >25) Each Risk Factor Represents 2 Points: Age 61-74 years Other congenital or acquired thrombophilia - If yes, enter type in comment: No Thrombosis Risk Factor Assessment Total Risk Factor Score: 3 Thrombosis Risk Factor Assessment Level: Moderate Risk Assessment and Plan (1) Sepsis Current Visit: Yes Status: Acute Code(s): A41.9 - SEPSIS, UNSPECIFIED ORGANISM SNOMED Code(s): 44170576 (2) Elevated troponin Current Visit: Yes Status: Acute Code(s): R79.89 - OTHER SPECIFIED ABNORMAL FINDINGS OF BLOOD CHEMISTRY SNOMED Code(s): 170253226 (3) Fever Current Visit: Yes Status: Acute Code(s): R50.9 - FEVER, UNSPECIFIED S NOMED Code(s): 242224078 (4) Tachycardia Current Visit: Yes Status: Acute Code(s): R00.0 - TACHYCARDIA, UNSPECIFIED SNOMED Code(s): 2839979 (5) CAD (coronary artery disease) Current Visit: Yes Status: Acute Code(s): I25.10 - ATHSCL HEART DISEASE OF [place] CORONARY ARTERY W/O ANG PCTRS SNOMED Code(s): 02940774 Plan: Elevated troponin with element of sepsis and history of valvular disease. Question need for echocardiogram. Consult cardiology and infectious disease at this time. Empiric antibiotic treatment however, this might need to be readdressed secondary to history of valvular disease. Dr. Dukes's group Route covering for the weekend. Check CBC and CMP in a.m.
[2020-03-16] MEDS ORDERED: PANTOPRAZOLE 40 MG TABLET PO SCH (08:30)
[2020-03-16] MEDS ORDERED: PIPERACILLIN-TAZOBACTAM 3.375 GM in SODIUM CHLORIDE 0.9% 100 ML IVPB SCH (08:30)
[2020-03-16] MEDS ORDERED: EZETIMIBE 10 MG TAB PO SCH (09:00)
[2020-03-16] MEDS ORDERED: FINASTERIDE 5 MG TAB PO SCH (09:00)
[2020-03-16] MEDS ORDERED: VALSARTAN 160 MG TAB PO SCH (09:00)
[2020-03-16] MEDS ORDERED: HEPARIN SODIUM,PORCINE 5,000 UNIT/ML 1 ML VIAL SQ SCH (09:00)
--- NOTE | 2020-03-16 10:46 | P.CRDCN ---
History of Present Illness Consult date: 03/16/20 Reason for Consult (text): Recent aortic valve replacement Chief complaint: Body aches, fever and chills History of present illness: This is a pleasant 65-year-old gentleman who follows regularly with Dr. Raman in the office. He has a known history of coronary artery disease with prior myocardial infarction and stenting of the RCA, hypertension, hyperlipidemia, ischemic cardiomyopathy, he has a history of bicuspid aortic valve with severe aortic root regurg, patient underwent aortic valve replacement with a bioprosthetic aortic valve as well as replacement of ascending aorta at [facility] in November of this year, history also of EtOH use. Patient presents to the hospital on this occasion with symptoms of 3 day duration of severe body aches, chills and fever. His temperature on arrival here was 102.6. Blood cultures came back positive for gram-positive cocci in clusters. Influenza A and B as well as Covid testing were negative. White blood cell count 7.9, hemoglobin 15.6, platelet count 163. Sodium 133, potassium 4.3, BUN 14, creatinine 1.0. AST 86, ALT 59, BNP 1650 and troponin 0.5. At the time of my examination this morning, patient continues to complain of generalized body aches. Prior to these symptoms starting 3 days ago, the patient was spiking up to 5 miles per day. Blood pressure 116/70 with a heart rate in the 80s, 97% on room air, temperature this morning 100.7. Past Medical History Past Medical History: Coronary Artery Disease (CAD), Cancer, GERD/Reflux, Hyperlipidemia, Hypertension, Myocardial Infarction ([place]), Mitral Valve Prolapse (MVP), Osteoarthritis (OA), Prostate Disorder Additional Past Medical History / Comment(s): L shoulder . Has had many broken bones in the past. Hx. skin cancer. Last Myocardial Infarction Date:: 2008 History of Any Multi-Drug Resistant Organisms: None Reported Past Surgical History: Coronary Bypass/CABG, Joint Replacement Additional Past Surgical History / Comment(s): R hip replacement, 2 heart stents in 2008. Skin cancer removed from back. Artico vavle replacement and Artico artry at [facility] November 2019 Past Anesthesia/Blood Transfusion Reactions: No Reported Reaction Date of Last Stent Placement:: 2008 Past Psychological History: No Psychological Hx Reported Smoking Status: Never smoker Past Alcohol Use History: Daily Additional Past Alcohol Use History / Comment(s): Smoked only a short time as a teenager. Past Drug Use History: Marijuana - Past Family History Mother Family Medical History: No Reported History Father Family Medical History: Myocardial Infarction ([place]) Medications and Allergies Home Medications Medication Instructions Recorded Confirmed Type Tamsulosin HCl [Flomax] 0.8 mg PO HS 12/03/15 03/15/20 History Ezetimibe [Zetia] 10 mg PO QAM 05/20/18 03/15/20 History Rosuvastatin Calcium [Crestor] 40 mg PO HS 05/20/18 03/15/20 History Dutasteride [Avodart] 0.5 mg PO QAM 07/08/19 03/15/20 History LORazepam [Ativan] 0.5 mg PO BID PRN 07/08/19 03/15/20 History HYDROcodone/APAP 5-325MG [[place] 1 tab PO Q6HR PRN 03/15/20 03/15/20 History 5-325] Valsartan [Diovan] 160 mg PO DAILY 03/15/20 03/15/20 History carvediloL [Coreg] 6.25 mg PO BID 03/15/20 03/15/20 History Allergies Allergy/AdvReac Type Severity Reaction Status Date / Time atorvastatin calcium Allergy Rash/Hives Verified 03/15/20 10:22 [From Lipitor] loratadine [From Claritin] Allergy Rash/Hives Verified 03/15/20 10:22 Physical Exam Vitals: Vital Signs Temp Pulse Pulse Resp BP BP Pulse Ox 03/16/20 08:29 100.7 F H 82 16 116/75 97 03/16/20 03:33 98 F 84 18 138/76 96 03/15/20 23:53 98 F 64 19 98/55 97 03/15/20 20:00 99.1 F 85 19 106/60 96 03/15/20 17:04 98.4 F 77 18 137/70 97 03/15/20 16:59 98.4 F 77 18 137/70 97 03/15/20 16:00 99.2 F 72 18 128/72 98 03/15/20 15:56 98.3 F 75 18 142/85 99 03/15/20 13:59 99 F 80 18 121/69 96 03/15/20 12:30 102.8 F H 89 18 143/91 96 03/15/20 10:56 102.6 F H 102 H 18 138/59 100 Intake and Output 03/15/20 03/16/20 03/16/20 22:59 06:59 14:59 Intake Total 130 Output Total 700 Balance 130 -700 Intake: Oral 130 Output: Urine 700 Other: Voiding Method Toilet Toilet # Voids 2 3 # Bowel Movements 5 Weight 98 kg PHYSICAL EXAMINATION: GENERAL: 65-year-old gentleman in no acute distress at the time of my examination HEENT: Head is atraumatic, normocephalic. Pupils equal, round. Sclera anicteric. Conjunctiva are clear. Mucous membranes of the mouth are moist. Neck is supple. There is no elevated jugular venous pressure. No carotid bruit is heard. HEART EXAMINATION: Heart S1, S2 normal. No murmur or gallop heard. CHEST EXAMINATION: Lungs are clear to auscultation and precussion. No chest wall tenderness is noted on palpation or with deep breathing. ABDOMEN: Soft, nontender. Bowel sounds are heard. No organomegaly noted. EXTREMITIES: 2+ peripheral pulses with no evidence of peripheral edema and no calf tenderness noted. NEUROLOGIC patient is awake, alert and oriented 3 . Results 03/15/20 10:39 03/15/20 10:39 Cardiac Enzymes 03/15/20 03/15/20 03/16/20 Range/Units 10:39 10:39 08:41 AST 86 H (17-59) U/L Troponin I 0.580 H* 2.170 H* (0.000-0.034) ng/mL CBC 03/15/20 Range/Units 10:39 WBC 7.9 (3.8-10.6) k/uL RBC 5.79 (4.30-5.90) m/uL Hgb 15.6 (13.0-17.5) gm/dL Hct 47.6 (39.0-53.0) % Plt Count 163 (150-450) k/uL Comprehensive Metabolic Panel 03/15/20 Range/Units 10:39 Sodium 133 L (137-145) mmol/L Potassium 4.3 (3.5-5.1) mmol/L Chloride 100 (98-107) mmol/L Carbon Dioxide 21 L (22-30) mmol/L BUN 14 (9-20) mg/dL Creatinine 1.07 (0.66-1.25) mg/dL Glucose 119 H (74-99) mg/dL Calcium 8.9 (8.4-10.2) mg/dL AST 86 H (17-59) U/L ALT 59 H (4-49) U/L Alkaline Phosphatase 51 (38-126) U/L Total Protein 7.6 (6.3-8.2) g/dL Albumin 4.3 (3.5-5.0) g/dL Current Medications Generic Name Dose Route Start Last Admin Trade Name Freq PRN Reason Stop Dose Admin Acetaminophen 650 mg 03/15/20 12:49 03/16/20 06:53 Acetaminophen Tab 325 Mg Tab PO 650 mg Q4H PRN Administration Fever Hydrocodone Bitart/Acetaminophen 1 each 03/15/20 19:09 Hydrocodone/Apap 5-325mg 1 Each Tab PO Q6HR PRN Pain Carvedilol 6.25 mg 03/15/20 20:00 03/16/20 06:30 Carvedilol 6.25 Mg Tab PO 6.25 mg BID-W/MEALS LORNE Administration Ezetimibe 10 mg 03/16/20 09:00 Ezetimibe 10 Mg Tab PO QAM LORNE Finasteride 5 mg 03/16/20 09:00 Finasteride 5 Mg Tab PO QAM LORNE Heparin Sodium (Porcine) 5,000 unit 03/16/20 09:00 Heparin Sodium,Porcine 5,000 Unit/Ml 1 Ml Vial SQ Q12HR LORNE Sodium Chloride 1,000 mls @ 100 mls/hr 03/15/20 10:30 03/16/20 06:23 Saline 0.9% IV Not Given .Q10H LORNE Piperacillin Sod/Tazobactam 100 mls @ 25 mls/hr 03/16/20 08:30 03/16/20 09:00 Sod 3.375 gm/ Sodium Chloride IVPB 25 mls/hr Q8HR LORNE Administration Lorazepam 0.5 mg 03/15/20 19:09 Lorazepam 0.5 Mg Tab PO BID PRN Anxiety Naloxone HCl 0.2 mg 03/15/20 12:22 Naloxone 0.4 Mg/Ml 1 Ml Vial IV Q2M PRN Opioid Reversal Patient's Own ( 40 mg 03/15/20 21:00 03/15/20 20:24 Rosuvastatin Calcium PO Not Given [Crestor] 40 Mg HS LORNE Tablet) Pantoprazole Sodium 40 mg 03/16/20 08:30 Pantoprazole 40 Mg Tablet PO AC-BRKFST LORNE Tamsulosin HCl 0.8 mg 03/15/20 21:00 03/15/20 20:24 Tamsulosin 0.4 Mg Cap.Er.24h PO 0.8 mg HS LORNE Administration Valsartan 160 mg 03/16/20 09:00 Valsartan 160 Mg Tab PO DAILY LORNE Intake and Output 03/15/20 03/16/20 03/16/20 22:59 06:59 14:59 Intake Total 130 Output Total 700 Balance 130 -700 Intake: Oral 130 Output: Urine 700 Other: Voiding Method Toilet Toilet # Voids 2 3 # Bowel Movements 5 Weight 98 kg 03/15/20 10:39 03/15/20 10:39 EKG Interpretations (text) EKG shows a normal sinus rhythm with no acute changes. Assessment and Plan Plan: Assessment and plan #1 generalized body aches with associated fever and chills, temperature up to 102.8. Blood cultures positive for gram-positive cocci in clusters #2 recent aortic valve replacement with bioprosthetic aortic valve and replacement of ascending aorta in November of this year #3 coronary artery disease history with prior RCA stenting and myocardial infarction #4 hypertension #5 hyperlipidemia #6 diabetes #7 ischemic cardiomyopathy Plan We will obtain an echocardiogram with Doppler study. Patient has also been advised to undergo transesophageal echocardiographic study, we will speak with Dr. Raman regarding the timing of this. Further recommendations then will be made. DNP note has been reviewed, I agree with a documented findings and plan of care. Patient was seen and examined.
[2020-03-16] MEDS ORDERED: ACETAMINOPHEN IV (For NPO) 1,000 MG in EMPTY BAG 1 BAG IVPB STA (11:40)
[2020-03-16] MEDS ORDERED: VANCOMYCIN IV PER PHARMACY 1 EACH MISC MISCELLANE PRN (11:55)
[2020-03-16] MEDS ORDERED: fentaNYL (PF) 50 MCG/ML 2 ML AMP ONE (12:04)
[2020-03-16] MEDS ORDERED: IV FLUID CONTINUATION 1,000 ML IV ONE (12:17)
[2020-03-16] MEDS ORDERED: BENZOCAINE SPRAY 1 CAN MUCOUS MEM ONE (12:17)
[2020-03-16] MEDS ORDERED: MIDAZOLAM 2 MG/2 ML VIAL IVP ONE (12:24)
[2020-03-16] MEDS: fentaNYL (PF) 50 MCG/ML 2 ML AMP IVP ONE ×2 (12:38→12:47)
[2020-03-16] MEDS: MIDAZOLAM 2 MG/2 ML VIAL IVP ONE ×2 (12:38→12:47)
[2020-03-16 13:50] VITALS: RESP 16
--- NOTE | 2020-03-16 14:15 | ECHOT ---
TRANSESOPHAGEAL ECHOCARDIOGRAM DATE OF SERVICE: 03/16/2020 PERFORMING PHYSICIAN: Logan Woodruff MD. PROCEDURE PERFORMED: Transesophageal echocardiogram. INDICATION: Rule out infective endocarditis in this 65-year-old gentleman with history of aortic valve replacement using bioprosthetic valve. COMPLICATION: None. LEVEL OF SEDATION: Moderate with sedation length of 15 minutes. PROCEDURE DESCRIPTION: After obtaining an informed consent, the patient was brought to the cardiac laborer pie [facility]ery. The pulse oximetry and heart rate monitors were attached to the patient. Subsequently, the transesophageal echocardiogram probe was advanced through the bite guard to the mid esophagus where a 2D echocardiogram images as well as color Doppler images of various cardiac structures were obtained from multiple angles. The transesophageal echocardiogram was performed using 2D echo images, color Doppler, pulse Doppler, and continuous-wave Dopplers as well. The procedure was completed without any complication. FINDINGS: The left ventricular dimension and systolic function appear to be within normal limits. The ejection fraction appeared to be in the range of 50% to 55%. The right ventricle appeared to be within normal limits for dimension. The left atrium appeared to be mildly dilated. The aortic valve is bioprosthetic valve. An echodensity was identified on the aortic side of the aortic valve quite concerning for vegetation. Also, there was an echolucent space surrounding the aortic valve concerning for abscess as well. The mitral valve is mildly thickened with mild to moderate MR. The tricuspid valve was not well visualized. No evidence of vegetations identified on either mitral or tricuspid valve. The pulmonic valve also seems to be free from any vegetations. Please note that there was significant turbulence in flow was identified on across the aortic valve. CONCLUSION: 1. Normal left ventricular dimension and systolic function with ejection fraction around 55%. 2. Normal right ventricular dimension and systolic function. 3. Mild biatrial enlargement. 4. Intact interatrial septum. 5. Bioprosthetic aortic valve with an echodensity was identified on the aortic side of the bioprosthetic valve concerning for vegetation. Also, there was an echolucent space around the aortic valve concerning for abscess. 6. Thickened mitral valve leaflets with mild to moderate mitral regurgitation. No evidence of vegetations identified on the mitral valve. 7. Normally functioning tricuspid valve and pulmonic valve. No evidence of vegetations identified on both valves. 8. No evidence of pericardial effusion identified. MMODL / IJN: [id number] /
[2020-03-16] MEDS ORDERED: NAFCILLIN 2 GM in DEXTROSE 5% IN WATER 100 ML IVPB SCH ×2 (16:00)
[2020-03-16 16:06] VITALS: BP 104/68; PULSE 88; TEMP 98.8
[2020-03-16 16:55] LABS: Glucose,Whole Blood 130 mg/dL (75-99)
--- NOTE | 2020-03-16 19:19 | ECHOF ---
Referral Reason:recent avr, fever MEASUREMENTS -------- HEIGHT: 170.2 cm WEIGHT: 86.2 kg BP: RVIDd: 4.1 cm (< 3.3) IVSd: 1.1 cm (0.6 - 1.1) LVIDd: 5.5 cm (3.9 - 5.3) LVPWd: 1.3 cm (0.6 - 1.1) IVSs: 1.8 cm LVIDs: 4.4 cm LVPWs: 2.0 cm LA Diam: 4.2 cm (2.7 - 3.8) LAESV Index (A-L): 27.03 ml/m Ao Diam: 3.5 cm (2.0 - 3.7) AV Cusp: 2.0 cm (1.5 - 2.6) MV EXCURSION: 16.009 mm (> 18.000) MV EF SLOPE: 80 mm/s (70 - 150) EPSS: 1.3 cm MV E Del: 0.82 m/s MV DecT: 189 ms MV A Del: 0.99 m/s MV E/A Ratio: 0.83 AV maxP.02 mmHg AV meanP.64 mmHg RAP: 5.00 mmHg RVSP: 34.01 mmHg FINDINGS -------- This was a technically adequate study. The left ventricular size is normal. There is mild concentric left ventricular hypertrophy. Overa ll left ventricular systolic function is low-normal with, an EF between 50 - 55 %. The right ventricle is moderately enlarged. Normal LA size by volume 22+/-6 ml/m2. The right atrium is normal in size. Interatrial and interventricular septum intact. Peak/mean gradient across the Aortic Valve is 22.02mmHg / 12.64mmHg. Normally functioning bioprosth etic valve. Can not exclude vegetation Mild mitral annular calcification present. Mild mitral regurgitation is present. Mild tricuspid regurgitation present. There is borderline pulmonary artery hypertension. The righ t ventricular systolic pressure, as measured by Doppler, is 34.01mmHg. The pulmonic valve was not well visualized. The aortic root size is normal. Normal inferior vena cava with normal inspiratory collapse consistent with estimated right atrial pre ssure of 5 mmHg. There is no pericardial effusion. CONCLUSIONS -------- 1. The left ventricular size is normal. 2. There is mild concentric left ventricular hypertrophy. 3. Overall left ventricular systolic function is low-normal with, an EF between 50 - 55 %. 4. The right ventricle is moderately enlarged. 5. Peak/mean gradient across the Aortic Valve is 22.02mmHg / 12.64mmHg. 6. Normally functioning bioprosthetic valve. 7. Can not exclude vegetation 8. Mild mitral annular calcification present. 9. Mild mitral regurgitation is present. 10. Mild tricuspid regurgitation present. 11. There is borderline pulmonary artery hypertension. 12. The right ventricular systolic pressure, as measured by Doppler, is 34.01mmHg. 13. There is no pericardial effusion. COMMUNICATION INSTRUCTOR: Marily Gandhi RDCS
--- NOTE | 2020-03-18 09:34 | CDI ---
Documentation Clarification Form Date: 03/18/20 From: Liliana Adkins Phone: If you have a question about this query, please contact Renetta Frias, Recruitment Advertising Manager at [phone] between 8am and 5pm. Admit Date: 03/15/20 Discharge Date: 03/16/20 Patient Name: KEISHA PATEL Visit Number: [id number] ATTENTION: The Clinical Documentation Specialists (CDI) and [facility] Coding Staff appreciate your assistance in clarifying documentation. Please respond to the clarification below the line at the bottom and electronically sign. The CDI & [facility] Coding staff will review the response and follow-up if needed. Please note: Queries are made part of the Legal Health Record. If you have any questions, please contact the author of this message via ITS. Dear Dr. Haim Garrett, The patients principal diagnosis has not been clearly identified and requires clarification. He presented with fever, elevated troponin. He was started on appropriate workup for sepsis and coronary disease. He has positive blood culture of gram positive cocci in clusters and started on empiric antibiotics. History/Risk factors: aortic valve replacement and bioprosthetic aortic valve and replacment ascending aorta, CAD s/p stenting & CABG, DM, HLD, ischemic cardiomyopathy, GERD, OA, prostate disorder Lab findings: BC- staph aureus, lactic acid-1.8, Troponin I-0.580, 2.170, 2.090, WBC-7.9, Neutrophils-85, lymphocytes-0.6 Chest XR findings: No evidence for acute pulmonary disease. Vital Signs: T-102.9, 102.6, 102.8; P-99,102, 89; R-18, BP-162/92, 138/59, 143/91 DANISH: Bioprosthetic aortic valve with an echodensity was identified on the aortic side of the bioprosthetic valve concerning for vegetation.Also, there was an echolucent space around the aortic valve concerning for abscess. Treatment:IV fluids, IV Zosyn, IV Rocephn, IV Vanco, IV Kefzol, IV Nafcillin Consults: Generalized body aches with associated fever and chills, temperature up to 102.8. Plan echo & DANISH. In your professional opinion, can you please clarify the diagnosis, after study, accounted for the patients presenting symptoms and was the reason chiefly responsible for the admission? The patient has bacterial endocarditis and sepsis. [facility]
--- NOTE | 2020-03-22 08:09 | P.DS ---
Providers Date of admission: 03/15/20 12:28 Attending physician: Kip Garrett Consults: 03/15/20 12:22 Consult Physician Urgent Consulting Provider: Logan Woodruff Consult Reason/Comments: elevated troponin with bodyaches, fever -no chest pain Do you want consulting provider notified?: Yes 03/16/20 08:20 Consult Physician Routine Consulting Provider: Candido Lagunas Consult Reason/Comments: Sepsis Do you want consulting provider notified?: Yes Primary care physician: Kip Garrett - Discharge Diagnosis(es) (1) Sepsis Status: Acute (2) Elevated troponin Status: Acute (3) Fever Status: Acute (4) Tachycardia Status: Acute (5) CAD (coronary artery disease) Status: Acute Hospital Course: This is a start summary on a 65-year-old white male essentially admitted for fever and chills with positive troponin. Diagnosis with T did show bacterial endocarditis. The patient was placed on empiric antibiotic treatment and transferred to tertiary care center for appropriate treatment due to valvular involvement and history of valve replacement in the past. Patient Condition at Discharge: Stable Plan - Discharge Summary New Discharge Prescriptions: No Action Tamsulosin HCl [Flomax] 0.8 mg PO HS Rosuvastatin Calcium [Crestor] 40 mg PO HS Ezetimibe [Zetia] 10 mg PO QAM Dutasteride [Avodart] 0.5 mg PO QAM LORazepam [Ativan] 0.5 mg PO BID PRN PRN Reason: Anxiety HYDROcodone/APAP 5-325MG [[place] 5-325] 1 tab PO Q6HR PRN PRN Reason: Pain carvediloL [Coreg] 6.25 mg PO BID Valsartan [Diovan] 160 mg PO DAILY Discharge Medication List Tamsulosin HCl [Flomax] 0.8 mg PO HS 12/03/15 [History] Ezetimibe [Zetia] 10 mg PO QAM 05/20/18 [History] Rosuvastatin Calcium [Crestor] 40 mg PO HS 05/20/18 [History] Dutasteride [Avodart] 0.5 mg PO QAM 07/08/19 [History] LORazepam [Ativan] 0.5 mg PO BID PRN 07/08/19 [History] HYDROcodone/APAP 5-325MG [[place] 5-325] 1 tab PO Q6HR PRN 03/15/20 [History] Valsartan [Diovan] 160 mg PO DAILY 03/15/20 [History] carvediloL [Coreg] 6.25 mg PO BID 03/15/20 [History] Follow up Appointment(s)/Referral(s): Kip Garrett MD [Primary Care Provider] - 1-2 days Discharge Disposition: OTHER INSTITUTION NOT DEFINED
--- NOTE | 2020-03-22 08:13 | CDI ---
Documentation Clarification Form Date: 03/22/20 From: Liliana Adkins Phone: If you have a question about this query, please contact Renetta Frias, Sanitation Manager at [phone] between 8am and 5pm. Admit Date: 03/15/20 Discharge Date: 03/16/20 Patient Name: KEISHA PATEL Visit Number: [id number] ATTENTION: The Clinical Documentation Specialists (CDI) and [facility] Coding Staff appreciate your assistance in clarifying documentation. Please respond to the clarification below the line at the bottom and electronically sign. The CDI & [facility] Coding staff will review the response and follow-up if needed. Please note: Queries are made part of the Legal Health Record. If you have any questions, please contact the author of this message via ITS. Dear Dr. Haim Garrett, Patient presented with troponin of: 0.580, 2.170, 2.090 Patient history/risk factors: aortic valve replacement and bioprosthetic aortic valve and replacEment ascending aorta, CAD s/p stenting & CABG, DM, HLD, ischemic cardiomyopathy, GERD, OA, prostate disorder Clinical indicators: He presented with fever, elevated troponin. He was started on appropriate workup for sepsis and coronary disease. He has positive blood culture of gram positive cocci in clusters and started on empiric antibiotics. Per your query response: bacterial endocarditis and sepsis Treatment: IV fluids, IV Zosyn, IV Rocephn, IV Vanco, IV Kefzol, IV Nafcillin EKG:Ventricular rate 88 bpm, W[place] interval 158ms, QRS mandaeism 112 ms, QT/QTC 360/435 ms (normal sinus there is no ST elevation or depression appreciated. There are some Q waves noted on the EKG. In your professional opinion, can you please specify the diagnosis, if any, indicated by the above clinical indicators and treatment? Type II CO NSTEMI Acute demand ischemia wo CO due to endocarditis- I would state that this is the diagnosis Other, please specify Unable to determine MTDD
== END 2020-03-16 18:14 | disposition short-term general hospital (02) | DRG 871 ==
LOC: EC 10:19 → 3SCARD 12:28
PROVIDERS: ADMIT Family Medicine; ATTEND Family Medicine
PROC: B246ZZ4 Ultrasonography of Right and Left Heart, Transesophageal (ICD-10-PCS; principal; 2020-03-16 15:25)
DX: A41.9 Sepsis, unspecified organism (principal); I33.0 Acute and subacute infective endocarditis; I11.9 Hypertensive heart disease without heart failure; E11.9 Type 2 diabetes mellitus without complications; I34.1 Nonrheumatic mitral (valve) prolapse; E78.5 Hyperlipidemia, unspecified; I25.5 Ischemic cardiomyopathy; I25.10 Atherosclerotic heart disease of native coronary artery without angina pectoris; R79.89 Other specified abnormal findings of blood chemistry; Z20.828 Contact with and (suspected) exposure to other viral communicable diseases; K21.9 Gastro-esophageal reflux disease without esophagitis; N42.9 Disorder of prostate, unspecified; M19.90 Unspecified osteoarthritis, unspecified site; I25.2 Old myocardial infarction; E66.9 Obesity, unspecified; Z68.32 Body mass index [BMI] 32.0-32.9, adult; Z79.899 Other long term (current) drug therapy; Z87.891 Personal history of nicotine dependence; Z95.3 Presence of xenogenic heart valve; Z95.5 Presence of coronary angioplasty implant and graft; Z85.828 Personal history of other malignant neoplasm of skin; Z96.641 Presence of right artificial hip joint; Z87.81 Personal history of (healed) traumatic fracture; Z95.1 Presence of aortocoronary bypass graft; Z98.890 Other specified postprocedural states; Z88.8 Allergy status to other drugs, medicaments and biological substances; Z82.49 Family history of ischemic heart disease and other diseases of the circulatory system
CPT/HCPCS: 36415; 62284; 71046; 80053; 81001; 82150; 83605; 83690; 83880; 84484; 85025; 86658; 87040; 87077; 87186; 87324; 87502; 93005; 93306; 93312; 93325; 96361; 96365; 99284

== ENCOUNTER → 2020-08-30 | Outpatient (CLI) | payer BC, OTHER ==
[2020-08-30 23:41] LABS: Basophils # (A) 0.05 X 10*3/uL (0.00-0.10); Basophils % (A) 0.7 %; Eosinophils # (A) 0.32 X 10*3/uL (0.04-0.35); Eosinophils % (A) 4.6 %; HCT 46.7 % (39.6-50.0); HGB 15.4 g/dL (13.0-17.0); Lymphocytes # (A) 2.39 X 10*3/uL (0.90-5.00); Lymphocytes % (A) 34.4 %; MCH 28.4 pg (27.0-32.0); Monocytes # (A) 0.83 X 10*3/uL (0.20-1.00); Monocytes % (A) 11.9 %; Neutrophils # (A) 3.35 X 10*3/uL (1.80-7.70); Neutrophils % (A) 48.3 %; Platelet Count 251 X 10*3/uL (140-440); RBC 5.43 X 10*6/uL (4.40-5.60); RDW 12.6 % (11.5-14.5); WBC 6.95 X 10*3/uL (4.50-10.00)
[2020-08-31 09:46] LABS: C Reactive Protein <0.4 mg/dL (0.0-0.8)
[2020-08-31 09:46] LABS: African American GFR (CKD) 91.8 (60.0-200.0); Albumin 4.7 g/dL (3.80-4.90); Albumin/Globulin Ratio 1.88 (1.60-3.17); Anion Gap 18.8 mmol/L (4.00-12.00); Calcium 9.8 mg/dL (8.7-10.3); Carbon Dioxide 16.2 mmol/L (21.6-31.8); Globulin 2.5 g/dL (1.6-3.3); Non-African American GFR(CKD) 79.2 (60.0-200.0); Potassium 4.6 mmol/L (3.5-5.5); Total Bilirubin 0.6 mg/dL (0.2-1.2); Total Protein 7.2 g/dL (6.2-8.2)
[2020-08-31 09:50] LABS: Prostate Specific Antigen 2.2 ng/mL (0.0-4.5)
== END | disposition home or self-care (01) ==
LOC: LABWHC1 12:56
PROVIDERS: ATTEND Urology
DX: N40.1 Benign prostatic hyperplasia with lower urinary tract symptoms (principal)
CPT/HCPCS: 36415; 80053; 84153; 85025; 86140

== ENCOUNTER → 2020-10-08 | Outpatient (CLI) | payer BC ==
[2020-10-08 19:18] LABS: Basophils # (A) 0.05 X 10*3/uL (0.00-0.10); Basophils % (A) 0.6 %; Eosinophils # (A) 0.44 X 10*3/uL (0.04-0.35); Eosinophils % (A) 5.7 %; HCT 43.5 % (39.6-50.0); HGB 14.2 g/dL (13.0-17.0); Lymphocytes # (A) 2.87 X 10*3/uL (0.90-5.00); Lymphocytes % (A) 37.1 %; MCH 28.5 pg (27.0-32.0); MCHC 32.6 g/dL (32.0-37.0); MCV 87.2 fL (80.0-97.0); Mean Platelet Volume 9.5 fL (9.5-12.2); Monocytes # (A) 0.75 X 10*3/uL (0.20-1.00); Monocytes % (A) 9.7 %; Neutrophils % (A) 46.6 %; Platelet Count 241 X 10*3/uL (140-440); RBC 4.99 X 10*6/uL (4.40-5.60); RDW 13.3 % (11.5-14.5); WBC 7.73 X 10*3/uL (4.50-10.00)
[2020-10-08 19:27] LABS: ALT 35 U/L (10-49); AST 27 U/L (14-35); African American GFR (CKD) 91.8 (60.0-200.0); Albumin/Globulin Ratio 1.92 (1.60-3.17); Alkaline Phosphatase 50 U/L (41-126); C Reactive Protein <0.4 mg/dL (0.0-0.8); Carbon Dioxide 27.1 mmol/L (21.6-31.8); Chloride 105 mmol/L (96-109); Globulin 2.4 g/dL (1.6-3.3); Glucose 92 mg/dL (70-110); Non-African American GFR(CKD) 79.2 (60.0-200.0); Potassium 4.5 mmol/L (3.5-5.5); Sodium 140 mmol/L (135-145); Total Bilirubin 0.6 mg/dL (0.3-1.2)
[2020-10-08 21:16] LABS: Erythrocyte Sedimentation Rate 5 mm/Hr (0-20)
== END | disposition home or self-care (01) ==
LOC: LABWHC1 13:31
PROVIDERS: ATTEND Internal Medicine
DX: I33.0 Acute and subacute infective endocarditis (principal); B95.61 Methicillin susceptible Staphylococcus aureus infection as the cause of diseases classified elsewhere
CPT/HCPCS: 36415; 80053; 85025; 85652; 86140

== ENCOUNTER → 2021-06-05 | Outpatient (CLI) | payer MEDICARE, BC ==
[2021-06-05 16:23] LABS: Basophils # (A) 0.06 X 10*3/uL (0.00-0.10); Basophils % (A) 0.9 %; Eosinophils # (A) 0.37 X 10*3/uL (0.04-0.35); Eosinophils % (A) 5.2 %; HCT 44.3 % (39.6-50.0); HGB 14.5 g/dL (13.0-17.0); Lymphocytes # (A) 2.72 X 10*3/uL (0.90-5.00); Lymphocytes % (A) 38.6 %; MCH 29.4 pg (27.0-32.0); MCHC 32.7 g/dL (32.0-37.0); MCV 89.7 fL (80.0-97.0); Mean Platelet Volume 9.5 fL (9.5-12.2); Monocytes # (A) 0.71 X 10*3/uL (0.20-1.00); Monocytes % (A) 10.1 %; Neutrophils # (A) 3.16 X 10*3/uL (1.80-7.70); Neutrophils % (A) 44.8 %; Platelet Count 251 X 10*3/uL (140-440); RBC 4.94 X 10*6/uL (4.40-5.60); RDW 12.2 % (11.5-14.5); WBC 7.05 X 10*3/uL (4.50-10.00)
[2021-06-05 16:56] LABS: ALT 26 U/L (10-49); AST 20 U/L (14-35); African American GFR (CKD) 81.2 (60.0-200.0); Albumin 4.5 g/dL (3.8-4.9); Albumin/Globulin Ratio 1.88 (1.60-3.17); Alkaline Phosphatase 42 U/L (41-126); BUN/Creat Ratio 15.82 Ratio (12.00-20.00); Blood Urea Nitrogen 17.4 mg/dL (9.0-27.0); Calcium 9.8 mg/dL (8.7-10.3); Carbon Dioxide 25.5 mmol/L (20.0-27.5); Chloride 102 mmol/L (96-109); Globulin 2.4 g/dL (1.6-3.3); Glucose 129 mg/dL (70-110); Non-African American GFR(CKD) 70.1 (60.0-200.0); Potassium 4.2 mmol/L (3.5-5.5); Sodium 144 mmol/L (135-145); Total Protein 6.9 g/dL (6.2-8.2)
[2021-06-05 17:22] LABS: C Reactive Protein <0.30 mg/dL (0.00-0.80)
== END | disposition home or self-care (01) ==
LOC: LABWHC1 10:27
PROVIDERS: ATTEND Internal Medicine
DX: I33.0 Acute and subacute infective endocarditis (principal); B95.61 Methicillin susceptible Staphylococcus aureus infection as the cause of diseases classified elsewhere
CPT/HCPCS: 36415; 80053; 85025; 86140

== ENCOUNTER → 2022-09-17 | Outpatient (CLI) | payer MEDICARE ==
[2022-09-17 18:18] LABS: ALT 27 U/L (10-49); AST 21 U/L (14-35); Chol/HDL Ratio 2.02 Ratio; LDL Cholesterol,Calculated 58.3 mg/dL (0.0-131.0); VLDL Calculation 16.02 mg/dL (5.00-40.00)
== END | disposition home or self-care (01) ==
LOC: LABWHC1 12:42
PROVIDERS: ATTEND Internal Medicine Interventional Cardiology
DX: E78.00 Pure hypercholesterolemia, unspecified (principal)
CPT/HCPCS: 36415; 80061; 84450; 84460

== ENCOUNTER 2023-03-04 07:02 | Emergency (ER) | payer MEDICARE, OTHER ==
[2023-03-04 07:11] VITALS: BP 139/90; PULSE 54; RESP 16; TEMP 97.9
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
--- NOTE | 2023-03-04 07:35 | XR ---
EXAMINATION TYPE: XR ribs RT w pa chest xray DATE OF EXAM: 03/04/2023 COMPARISON: 03/15/2020 HISTORY: Pain right side ribs all TECHNIQUE: Frontal chest, 2 view right ribs FINDINGS: Heart size is normal. Pulmonary vasculature is normal. No pneumothorax is evident. Right ribs as visualized appear intact. Old right rib fractures of 5 and 6 are evident present previo usly. IMPRESSION: 1. No acute osseous abnormality. 2. No acute pulmonary process.
== END 2023-03-04 09:29 | disposition home or self-care (01) ==
LOC: EC 07:02
DX: S20.20XA Contusion of thorax, unspecified, initial encounter (principal); I25.10 Atherosclerotic heart disease of native coronary artery without angina pectoris; E78.5 Hyperlipidemia, unspecified; I10 Essential (primary) hypertension; I25.2 Old myocardial infarction; M19.90 Unspecified osteoarthritis, unspecified site; F12.90 Cannabis use, unspecified, uncomplicated; Z79.899 Other long term (current) drug therapy; Z88.6 Allergy status to analgesic agent; Z88.8 Allergy status to other drugs, medicaments and biological substances; V19.9XXA Pedal cyclist (driver) (passenger) injured in unspecified traffic accident, initial encounter
CPT/HCPCS: 99283

== ENCOUNTER → 2023-04-16 | Outpatient (CLI) | payer MEDICARE, OTHER ==
--- NOTE | 2023-04-16 11:14 | CA ---
Transthoracic Echo Report Name: Ernst Lechuga Age: 68 Gender: M : 1955 Exam Date: 04/16/2023 08:34 Exam Location: [facility] Ht (in): 67 Wt (lb): 299 Ordering Physician: Kip Garrett MD Attending/Referring Phys: Service Specialist Marily Gandhi RDCS Procedure CPT: Indications: R06.09 Dyspnea Cardiac Hx: Biopristhetic AOV, Hx of endocarditis Technical Quality: Fair Contrast 1: Total Dose (mL): Contrast 2: Total Dose (mL): MEASUREMENTS (Male / Female) Normal Values 2D ECHO LV Diastolic Diameter PLAX 4.9 cm 4.2 - 5.9 / 3.9 - 5.3 cm LV Systolic Diameter PLAX 3.6 cm IVS Diastolic Thickness 1.3 cm 0.6 - 1.0 / 0.6 - 0.9 cm LVPW Diastolic Thickness 1.5 cm 0.6 - 1.0 / 0.6 - 0.9 cm LV Relative Wall Thickness 0.6 RV Internal Dim ED PLAX 4.4 cm LVOT Diameter 2.9 cm LA Systolic Diameter LX 3.7 cm 3.0 - 4.0 / 2.7 - 3.8 cm LV Diastolic Volume MOD 4C 108.2 cm??? LV Systolic Volume MOD 4C 60.9 cm??? LV Ejection Fraction MOD 4C 43.7 % LV Cardiac Index MOD 4C 906.5 cm???/min???m??? LV Diastolic Length 4C 9.4 cm LV Systolic Length 4C 8.0 cm LV Diastolic Volume MOD 2C 112.8 cm??? LV Systolic Volume MOD 2C 63.8 cm??? LV Ejection Fraction MOD 2C 43.4 % LV Cardiac Index MOD 2C 939.6 cm???/min???m??? LV Diastolic Length 2C 7.9 cm LV Systolic Length 2C 7.2 cm LA Volume 50.3 cm??? 18 - 58 / 22 - 52 cm??? LA Volume Index 19.3 cm???/m??? 16 - 28 cm???/m??? M-MODE Aortic Root Diameter MM 4.0 cm MV E Point Septal Separation 0.4 cm DOPPLER AV Peak Velocity 191.9 cm/s AV Peak Gradient 14.7 mmHg AV Mean Velocity 126.9 cm/s AV Mean Gradient 7.4 mmHg AV Velocity Time Integral 47.4 cm LVOT Peak Velocity 65.4 cm/s LVOT Peak Gradient 1.7 mmHg AV Area Cont Eq pk 2.3 cm??? MV Area PHT 3.2 cm??? Mitral E Point Velocity 83.3 cm/s Mitral A Point Velocity 64.7 cm/s Mitral E to A Ratio 1.3 MV Deceleration Time 238.7 ms MV E' Velocity 5.7 cm/s Mitral E to MV E' Ratio 14.6 TR Peak Velocity 217.0 cm/s TR Peak Gradient 18.8 mmHg Right Ventricular Systolic Press 23.8 mmHg FINDINGS Left Ventricle Left ventricular ejection fraction is estimated at 40-45 %. Left ventricular cavity size normal. Mild concentric left ventricular hypertrophy. Right Ventricle Severe right ventricular dilatation. Right ventricular systolic pressure within normal limits. Right Atrium Normal right atrial size. Left Atrium Normal left atrial size. Mitral Valve Structurally normal mitral valve. Trace mitral regurgitation. Aortic Valve Normal functioning AOV with max gradient of 15 mmHg and mean gradient of 7 mmHg Tricuspid Valve Structurally normal tricuspid valve. Mild tricuspid regurgitation. Pulmonic Valve Pulmonic valve not well visualized. Pericardium No pericardial effusion. Aorta Mild aortic dilatation at the level of the sinuses of valsalva 40 mm CONCLUSIONS Reduced LV systolic function ejection fraction 45% RV enlargement Bioprosthetic aortic valve with acceptable gradients Previewed by: Dr. Warren Singh MD (Electronically Signed) Final Date: 16 April 2023 11:13
== END | disposition home or self-care (01) ==
LOC: RADECHMAIN 08:07
PROVIDERS: ATTEND Family Medicine
DX: R06.09 Other forms of dyspnea (principal)
CPT/HCPCS: 93225; 93226; 93306

== ENCOUNTER 2023-06-29 14:08 | Emergency (ER) | payer MEDICARE, OTHER ==
[2023-06-29 14:13] VITALS: TEMP 97.9
[2023-06-29] MEDS ORDERED: ALBUTEROL HFA INHALER INHALATION STA (14:27)
--- NOTE | 2023-06-29 15:11 | XR ---
EXAMINATION TYPE: XR chest 2V DATE OF EXAM: 06/29/2023 2:54 PM CLINICAL INDICATION:Male, 68 years old with history of cough, sob; COMPARISON: Chest radiographs from and 12/16/2022. TECHNIQUE: XR chest 2V Frontal and lateral views of the chest. FINDINGS: Lungs/Pleura: There is flattening of the diaphragm with increased lucency of the lungs. No evidence o f pneumothorax, pleural effusion or focal consolidation. Pulmonary vascularity: Unremarkable. Heart/mediastinum: Cardiomediastinal silhouette is unremarkable. Post aortic valve repair changes. Musculoskeletal: No acute osseous pathology. Midline sternotomy wires are noted. IMPRESSION: 1. No acute cardiopulmonary disease process. 2. COPD changes.
--- NOTE | 2023-06-29 15:26 | ED ---
URI HPI - General Chief Complaint: Upper Respiratory Infection Stated Complaint: Congestion Time Seen by Provider: 06/29/23 14:15 Source: patient, RN notes reviewed Mode of arrival: ambulatory Limitations: no limitations - History of Present Illness Initial Comments: 68-year-old male presents emergency Department with chief complaint of cough and cold symptoms. Patient states is not the last few days. Patient states that increased nasal congestion, wheezing no reported fever. He states his nose constantly draining. Patient denies any abdominal pain or GI symptoms. Patient denies any sick contacts. - Related Data Home Medications Medication Instructions Recorded Confirmed Tamsulosin HCl [Flomax] 0.8 mg PO HS 12/03/15 03/15/20 Ezetimibe [Zetia] 10 mg PO QAM 05/20/18 03/15/20 Rosuvastatin Calcium [Crestor] 40 mg PO HS 05/20/18 03/15/20 Dutasteride [Avodart] 0.5 mg PO QAM 07/08/19 03/15/20 LORazepam [Ativan] 0.5 mg PO BID PRN 07/08/19 03/15/20 HYDROcodone/APAP 5-325MG [[place] 1 tab PO Q6HR PRN 03/15/20 03/15/20 5-325] Valsartan [Diovan] 160 mg PO DAILY 03/15/20 03/15/20 carvediloL [Coreg] 6.25 mg PO BID 03/15/20 03/15/20 Previous Rx's Medication Instructions Recorded Albuterol Inhaler [Ventolin Hfa 1 - 2 puff INHALATION Q6H PRN #1 06/29/23 Inhaler] each Allergies Allergy/AdvReac Type Severity Reaction Status Date / Time atorvastatin calcium Allergy Rash/Hives Verified 06/29/23 14:14 [From Lipitor] cefazolin Allergy Rash/Hives Verified 06/29/23 14:16 fexofenadine Allergy Rash/Hives Verified 06/29/23 14:16 loratadine [From Claritin] Allergy Rash/Hives Verified 06/29/23 14:14 rifampin Allergy Rash/Hives Verified 06/29/23 14:16 Review of Systems ROS Statement: Those systems with pertinent positive or pertinent negative responses have been documented in the HPI. ROS Other: All systems not noted in ROS Statement are negative. Past Medical History Past Medical History: Coronary Artery Disease (CAD), Cancer, GERD/Reflux, Hyperlipidemia, Hypertension, Myocardial Infarction ([place]), Mitral Valve Prolapse (MVP), Osteoarthritis (OA), Prostate Disorder Additional Past Medical History / Comment(s): L shoulder . Has had many broken bones in the past. Hx. skin cancer. bradycardia Last Myocardial Infarction Date:: 2008 History of Any Multi-Drug Resistant Organisms: None Reported Past Surgical History: Coronary Bypass/CABG, Joint Replacement Additional Past Surgical History / Comment(s): R hip replacement, 2 heart stents in 2008. Skin cancer removed from back. Artico vavle replacement and Artico artry at [facility] November 2019 Past Anesthesia/Blood Transfusion Reactions: No Reported Reaction Date of Last Stent Placement:: 2008 Past Psychological History: No Psychological Hx Reported Smoking Status: Never smoker Past Alcohol Use History: Daily Past Drug Use History: Marijuana - Past Family History Mother Family Medical History: No Reported History Father Family Medical History: Myocardial Infarction ([place]) General Exam Limitations: no limitations General appearance: alert, in no apparent distress Head exam: Present: atraumatic, normocephalic, normal inspection Eye exam: Present: normal appearance, PERRL, EOMI. Absent: scleral icterus, conjunctival injection, periorbital swelling ENT exam: Present: normal exam, normal oropharynx, mucous membranes moist, TM's normal bilaterally Neck exam: Present: normal inspection. Absent: tenderness, meningismus, lymphadenopathy Respiratory exam: Present: wheezes. Absent: normal lung sounds bilaterally, respiratory distress, rales, rhonchi, stridor Cardiovascular Exam: Present: regular rate, normal rhythm, normal heart sounds. Absent: systolic murmur, diastolic murmur, rubs, gallop, clicks Course Vital Signs 06/29/23 14:10 Temperature 97.9 F Pulse Rate 69 Respiratory 16 Rate Blood Pressure 142/94 O2 Sat by Pulse 97 Oximetry Medical Decision Making - Medical Decision Making Was pt. sent in by a medical professional or institution (, PA, OCCUPATIONAL THERAPY DEPARTMENT CHAIR, urgent care, hospital, or prison...) When possible be specific @ -No Did you speak to anyone other than the patient for history (EMS, parent, family, police, friend...)? What history was obtained from this source @ -No Did you review nursing and triage notes (agree or disagree)? Why? @ -I reviewed and agree with nursing and triage notes Were old charts reviewed (outside hosp., previous admission, EMS record, old EKG, old radiological studies, urgent care reports/EKG's, prison records)? Report findings @ -No old charts were reviewed Differential Diagnosis (chest pain, altered mental status, abdominal pain women, abdominal pain men, vaginal bleeding, weakness, fever, dyspnea, syncope, headache, dizziness, GI bleed, back pain, seizure, CVA, palpatations, mental health, musculoskeletal)? @ -COVID 19, RSV, influenza, pneumonia, acute bronchitis, URI, this list is not all inclusiveble EKG interpreted by me (3pts min.). @ -[None X-rays interpreted by me (1pt min.). @ -Chest x-ray two-view shows no acute cardiopulmonary processes no lobar pneumonia, no pneumothorax or cardiomegaly CT interpreted by me (1pt min.). @ -None done U/S interpreted by me (1pt. min.). @ -None done What testing was considered but not performed or refused? (CT, X-rays, U/S, labs)? Why? @ -None What meds were considered but not given or refused? Why? @ -None Did you discuss the management of the patient with other professionals ( professionals i.e. , PA, OCCUPATIONAL THERAPY DEPARTMENT CHAIR, lab, RT, psych nurse, social services counselor, botany laboratory assistant, teacher, senior major gifts officer, disease case manager)? Give summary @ -No Was smoking cessation discussed for >3mins.? @ -No Was critical care preformed (if so, how long)? @ -No Were there social determinants of health that impacted care today? How? (Homelessness, low income, unemployed, alcoholism, drug addiction, transportation, low edu. Level, literacy, decrease access to med. care, snf, rehab)? @ -No Was there de-escalation of care discussed even if they declined (Discuss DNR or withdrawal of care, Hospice)? DNR status @ -No What co-morbidities impacted this encounter? (DM, HTN, Smoking, COPD, CAD, Cancer, CVA, ARF, Chemo, Hep., AIDS, mental health diagnosis, sleep apnea, morbid obesity)? @ -None Was patient admitted / discharged? Hospital course, mention meds given and route, prescriptions, significant lab abnormalities, going to OR and other pertinent info. @ -Discharge patient is RSV positive. Patient has no evidence of pneumonia no hypoxia. Patient we discharged with supportive treatment return parameters were discussed. Undiagnosed new problem with uncertain prognosis? @ -No Drug Therapy requiring intensive monitoring for toxicity (Heparin, Nitro, Insulin, Cardizem)? @ -No Were any procedures done? @ -No Diagnosis/symptom? @ -RSV infection Acute, or Chronic, or Acute on Chronic? @ -Acute Uncomplicated (without systemic symptoms) or Complicated (systemic symptoms)? @ -Uncomplicated Side effects of treatment? @ -No Exacerbation, Progression, or Severe Exacerbation? @ -No Poses a threat to life or bodily function? How? (Chest pain, [place], [place], pneumonia, PE, COPD, DKA, ARF, appy, cholecystitis, CVA, Diverticulitis, Homicidal, Suicidal, threat to staff... and all critical care pts) @ -No - Lab Data Lab Results 06/29/23 Range/Units 14:21 Influenza Type A (PCR) Not Detected (Not Detectd) Influenza Type B (PCR) Not Detected (Not Detectd) RSV (PCR) Detected A (Not Detectd) SARS-CoV-2 (PCR) Not Detected (Not Detectd) Disposition Clinical Impression: RSV infection Disposition: HOME SELF-CARE Condition: Stable Instructions (If sedation given, give patient instructions): Respiratory Syncytial Virus (ED) Additional Instructions: Please return to the Emergency Department if symptoms worsen or any other concerns. Prescriptions: Albuterol Inhaler [Ventolin Hfa Inhaler] 1 - 2 puff INHALATION Q6H PRN #1 each PRN Reason: Shortness Of Breath Is patient prescribed a controlled substance at d/c from ED?: No Referrals: Kip Garrett MD [Primary Care Provider] - 1-2 days Time of Disposition: 15:25
[2023-06-29 15:52] VITALS: BP 132/82; PULSE 60; RESP 20
== END 2023-06-29 15:44 | disposition home or self-care (01) ==
LOC: EC 14:08
DX: R05.9 Cough, unspecified (principal); B97.4 Respiratory syncytial virus as the cause of diseases classified elsewhere; I25.10 Atherosclerotic heart disease of native coronary artery without angina pectoris; I10 Essential (primary) hypertension; E78.5 Hyperlipidemia, unspecified; I25.2 Old myocardial infarction; J44.9 Chronic obstructive pulmonary disease, unspecified; M19.90 Unspecified osteoarthritis, unspecified site; F12.90 Cannabis use, unspecified, uncomplicated; Z88.1 Allergy status to other antibiotic agents; Z88.8 Allergy status to other drugs, medicaments and biological substances; Z79.899 Other long term (current) drug therapy; Z20.822 Contact with and (suspected) exposure to COVID-19
CPT/HCPCS: 71046; 87636; 94640; 99283

== ENCOUNTER → 2023-08-18 | Outpatient (CLI) | payer MEDICARE, OTHER ==
--- NOTE | 2023-08-18 16:07 | P.SLEEP ---
History of Present Illness H&P Date: 08/18/23 This is a 68-year-old male patient was referred to me for sleep apnea evaluation. The patient has an extensive cardiac history. The patient has history of bicuspid aortic valve, coronary artery disease with previous myocardial infarction and stenting of the RCA in addition to hypertension hyperlipidemia and ischemic cardiomyopathy. The patient had bicuspid aortic valve with aortic valve replacement and the patient also had a replacement of the ascending aorta and this was done at [facility] back in 2019. Based on the most recent echocardiogram, he was noted to have some RV dilatation. This was a concern and sleep apnea was considered based on this finding. Nevertheless, looking at his old echocardiogram from 2020, the patient has had issues with chronic dilatation of the RV where his RV was moderately dilated. Based on the most recent echocardiogram, the patient has normally functioning bioprosthetic aortic valve with moderate degree of pulm hypertension. No significant edema in lower extremities. In terms of sleep apnea symptoms, he has history of snoring. He goes to bed around 9 PM wakes up at 7 AM in the morning. He maintains the same schedule over the weekends. He wakes up around 3-4 times in the middle of the night occasionally to urinate. No witnessed apneas. He has chronic hypersomnia sleepiness with an [place] score of 8. No recent weight gain his weight has been essentially stable. No nocturnal dyspnea or heartburn. No issues with daytime functionality and the patient has no anxiety or depression or panic attacks. No nightmares. No sleep paralysis. No hallucinations. No cataplexy. No sleepwalking or sleep talking. No restlessness in his lower extremities. Review of Systems Constitutional: Reports daytime sleepiness, Reports fatigue Eyes: denies as per HPI, denies blurred vision, denies bulging eye, denies decreased vision, denies diplopia, denies discharge, denies dry eye, denies irritation, denies itching, denies pain, denies photophobia, denies loss of p eripheral vision, denies loss of vision, denies tunnel vision/blind spots Ears: deny: decreased hearing, ear discharge, earache, tinnitus Ears, nose, mouth and throat: Reports as per HPI Breasts: absent: as per HPI, gynecomastia Cardiovascular: Reports as per HPI Respiratory: Reports snoring Gastrointestinal: Reports as per HPI Genitourinary: Reports as per HPI Musculoskeletal: Reports as per HPI Musculoskeletal: absent: ankle pain, ankle stiffness, ankle swelling, as per HPI, elbow pain, elbow stiffness, elbow swelling, foot pain, foot stiffness, foot swelling, hand pain, hand stiffness, hand swelling, hip pain, hip stiffness, hip swelling, knee pain, knee stiffness, knee swelling, shoulder pain, shoulder stiffness, shoulder swelling, wrist pain, wrist stiffness, wrist swelling Integumentary: Reports as per HPI Neurological: Reports as per HPI Psychiatric: Reports as per HPI Endocrine: Reports as per HPI Hematologic/Lymphatic: Reports as per HPI Allergic/Immunologic: Reports as per HPI Past Medical History Past Medical History: Coronary Artery Disease (CAD), Cancer, GERD/Reflux, Hyperlipidemia, Hypertension, Myocardial Infarction (AL), Mitral Valve Prolapse (MVP), Osteoarthritis (OA), Prostate Disorder Additional Past Medical History / Comment(s): L shoulder . Has had many broken bones in the past. Hx. skin cancer. Valvular heart disease and the patient has undergone aortic valve replacement and replacement of the aortic root at [facility] back in 2019 Last Myocardial Infarction Date:: 2008 History of Any Multi-Drug Resistant Organisms: None Reported Past Surgical History: Coronary Bypass/CABG, Joint Replacement Additional Past Surgical History / Comment(s): R hip replacement, 2 heart stents in 2008. Skin cancer removed from back. Artico vavle replacement and Artico artry at [facility] 2019 Past Anesthesia/Blood Transfusion Reactions: No Reported Reaction Date of Last Stent Placement:: 2008 Past Psychological History: No Psychological Hx Reported Smoking Status: Never smoker Past Alcohol Use History: Daily Past Drug Use History: Marijuana - Past Family History Mother Family Medical History: No Reported History Father Family Medical History: Myocardial Infarction (AL) Medications and Allergies Home Medications Medication Instructions Recorded Confirmed Type Tamsulosin HCl [Flomax] 0.8 mg PO HS 12/03/15 03/15/20 History Ezetimibe [Zetia] 10 mg PO QAM 05/20/18 03/15/20 History Rosuvastatin Calcium [Crestor] 40 mg PO HS 05/20/18 03/15/20 History Dutasteride [Avodart] 0.5 mg PO QAM 07/08/19 03/15/20 History LORazepam [Ativan] 0.5 mg PO BID PRN 07/08/19 03/15/20 History HYDROcodone/APAP 5-325MG [A[place]ora 1 tab PO Q6HR PRN 03/15/20 03/15/20 History 5-325] Valsartan [Diovan] 160 mg PO DAILY 03/15/20 03/15/20 History carvediloL [Coreg] 6.25 mg PO BID 03/15/20 03/15/20 History Albuterol Inhaler [Ventolin Hfa 1 - 2 puff INHALATION Q6H PRN #1 06/29/23 Rx Inhaler] each Allergies Allergy/AdvReac Type Severity Reaction Status Date / Time atorvastatin calcium Allergy Rash/Hives Verified 06/29/23 14:14 [From Lipitor] cefazolin Allergy Rash/Hives Verified 06/29/23 14:16 fexofenadine Allergy Rash/Hives Verified 06/29/23 14:16 loratadine [From Claritin] Allergy Rash/Hives Verified 06/29/23 14:14 rifampin Allergy Rash/Hives Verified 06/29/23 14:16 Physical Exam BP is 130/89 with a pulse of 63 and a respiration of 12 with a temperature 97.5. Pulse ox 97% room air oxygen. Weight is 195, body mass index is 31.4 and [place] score is at 8. Size of the neck is 17 inches. The patient appeared well nourished and normally developed. Vital signs as documented. Head exam is unremarkable. No scleral icterus or corneal arcus noted. Neck is without jugular venous distension, thyromegaly, or carotid bruits. The patient has a Mallampati class IV with significant crowding of the posterior pharynx. Carotid upstrokes are brisk bilaterally. Lungs are clear to auscultation and percussion. Cardiac exam reveals the PMI to be normally sized and situated. Rhythm is regular. First and second heart sounds normal. The patient has a mild systolic ejection murmur grade 2/6 or throughout the precordium especially in the left apex. No, rubs or gallops. Abdominal exam reveals normal bowel sounds, no masses, no organomegaly and no aortic enlargement. Extremities are nonedematous and both femoral and pedal pulses are normal. Examination of the skin revealed no evidence of significant rashes, suspicious appearing nevi or other concerning lesions. Neurologically, the patient is awake and alert and the patient does not have any focal neurological deficit. Cranial nerves are essentially intact. Assessment and Plan Plan: Snoring, sleep fragmentation along with mild somnolence and sleepiness with an [place] score of 8. Rule out underlying obstructive sleep apnea RV dilatation as noted on the echocardiogram. The patient has moderately dilated RV. No significant pulmonary hypertension and his PA pressure mildly elevated. Consider underlying sleep breathing disorder. Consider underlying left-sided heart failure/valvular heart disease contributing to his chronic RV dilatation. No signs of any cor pulmonale or RV failure at this point in time. History of bicuspid aortic valve and the patient has undergone aortic valve replacement and replacement of aortic root, likely a Bentall procedure at [facility] back in 2019 Coronary artery disease with stenting of the RCA Previous history of infective endocarditis Frequent PVCs BPH History of skin cancer Hyperlipidemia Acid reflux Hypertension Osteoarthritis Plan The RV dilatation is likely chronic possibly due to his previous history of valvular heart disease. Underlying sleep breathing disorder cannot be completely ruled out based on above-mentioned symptoms. Will set up this patient for a screening. He and decide if further treatment regarding obstructive sleep apnea is needed. Encourage weight loss. Optimize sleep hygiene measures. Maintain regular sleep schedule. Will continue to follow. Time with Patient: Greater than 30 Sleep Note - Sleep Note Sleep Note: Temperature: Pulse Rate: Respiratory Rate: Blood Pressure: SpO2: Height: Weight: BMI: Neck Circumference:
== END ==
LOC: 3 N SLEEP 13:59
PROVIDERS: ATTEND Internal Medicine Critical Care Medicine
DX: G47.8 Other sleep disorders (principal); R06.83 Snoring; I25.10 Atherosclerotic heart disease of native coronary artery without angina pectoris; N40.0 Benign prostatic hyperplasia without lower urinary tract symptoms; E78.5 Hyperlipidemia, unspecified; K21.9 Gastro-esophageal reflux disease without esophagitis; M19.90 Unspecified osteoarthritis, unspecified site; I10 Essential (primary) hypertension; R40.0 Somnolence; G47.10 Hypersomnia, unspecified; I25.2 Old myocardial infarction; F12.90 Cannabis use, unspecified, uncomplicated; I49.3 Ventricular premature depolarization; Z95.5 Presence of coronary angioplasty implant and graft; Z86.79 Personal history of other diseases of the circulatory system; Z87.2 Personal history of diseases of the skin and subcutaneous tissue; Z79.899 Other long term (current) drug therapy; Z88.8 Allergy status to other drugs, medicaments and biological substances; Z87.891 Personal history of nicotine dependence
CPT/HCPCS: 99211

== ENCOUNTER 2023-08-23 19:09 | Outpatient (CLI) | payer MEDICARE, OTHER ==
--- NOTE | 2023-09-14 14:18 | P.PCN ---
Date of Procedure: 09/21/23 Operative Findings: Polysomnography report Date of service is 08/18/2023 Pertinent history This is a 68-year-old male patient was referred to me for sleep apnea evaluation. The patient is known to have coronary artery disease, previous history of infective endocarditis, previous history of bicuspid aortic valve and the patient has undergone aortic valve replacement with replacement of the aortic root and the patient has RV dilatation. No significant pulmonary hypertension. There was concern for this patient having sleep apnea. Snoring and sleep fragmentation and mild hypersomnia and the patient had an [place] score of 8. Based on that, the patient was referred for a sleep evaluation Pertinent physical findings Height is 5 feet 6 inches, weight is 195 pounds and a body mass index is 31.4 Technical description The patient was studied using a standard complex polysomnography protocol that included recording of the 2 EKG, Central, occipital and frontal EEG, right and left outer canthus EOG, submental EMG, right and left anterior tibialis EMG, respiratory airflow by thermocouple and or pressure/flow transducer, respiratory efforts by abdominal and thoracic PVDF belts, oxygen saturation by cable oximetry. Position by observation synchronized the PSG. mPortal. Sleep characteristics The total time in bed was 426.5 minutes. The total sleep time was 351.5 minutes. The sleep efficiency was 82.4%. Latency to sleep onset was 13.5 minutes. Latency to REM sleep was 74.5 minutes. Sleep architecture was catheterized by 12.7% stage I, 70.4% stage II, 0% stage III and XVI 0.5% REM sleep. The total arousal index was 8.4 Respiratory summary Sleep study showed a total of 36 obstructive events of which 3 were obstructive apneas, 0 were mixed apneas, 33 were obstructive hypopneas and the patient had an apnea-hypopnea index of 6. No central apneas were noted. At the same time, the patient had a baseline pulse ox of 92% while awake, lowest pulse ox during sleep was 84% and the patient spent approximately 31 minutes of sleep time below pulse ox of 89%. Sleep continuity summary The patient had a total of 49 arousals with an index of 8.4 and a respiratory arousal index of 0.3 Periodic movement events There was a total of 31 periodic limb movement in sleep with an index of 5.3. Those were not associated with any arousals. Assessment Mild obstructive sleep apnea with an AHI of 6. Respiratory events were essentially in the form of obstructive hypopneas. The obstructive hypopneas with predominantly occurring during REM sleep. Mild nocturnal oxygen saturation secondary to above Chronic RV dilatation probably due to his underlying valvular heart disease. No significant pulm hypertension at this point in time. Very unlikely for this patient's degree disorder contributing to his RV dilatation. Coronary artery disease with previous stenting of the RCA Previous history of infective endocarditis BPH Skin cancer Hyperlipidemia Hypertension Osteoarthritis Acid reflux Plan This is a very mild case of obstructive sleep apnea. Obstructive events are essentially in the form of hypopneas. Mild nocturnal oxygen saturation is were noted during the sleep study. I highly doubt that the patient is already dilatation and failure is related to sleep breathing disorder. In fact this patient sleep apnea is extremely mild and probably has no consequence or bearing to his RV dilatation. This is probably related to his underlying valvular heart disease as the patient has a previous history of bicuspid aortic valve and has undergone aortic valve replacement with aortic root replacement back in 2019. He has also previous history of infective endocarditis. Consider left-sided failure contributing to his RV dilatation. I do not see any immediate need for CPAP therapy. Encourage weight loss. Encouraged the patient to sleep on his side and keep the head of the bed elevated. Follow-up with cardiology.
== END 2023-08-24 05:40 | disposition home or self-care (01) ==
LOC: 3 N SLEEP 19:09
PROVIDERS: ATTEND Internal Medicine Critical Care Medicine
DX: G47.33 Obstructive sleep apnea (adult) (pediatric) (principal); G47.36 Sleep related hypoventilation in conditions classified elsewhere; G47.52 REM sleep behavior disorder; E78.5 Hyperlipidemia, unspecified; N40.0 Benign prostatic hyperplasia without lower urinary tract symptoms; I25.10 Atherosclerotic heart disease of native coronary artery without angina pectoris; K21.9 Gastro-esophageal reflux disease without esophagitis; M19.90 Unspecified osteoarthritis, unspecified site; C44.92 Squamous cell carcinoma of skin, unspecified; I11.9 Hypertensive heart disease without heart failure; Z95.2 Presence of prosthetic heart valve; Z95.5 Presence of coronary angioplasty implant and graft; Z88.8 Allergy status to other drugs, medicaments and biological substances; Z88.1 Allergy status to other antibiotic agents; Z87.891 Personal history of nicotine dependence; Z79.899 Other long term (current) drug therapy
CPT/HCPCS: 95810

== ENCOUNTER → 2024-05-09 | Outpatient (CLI) | payer MEDICARE ==
--- NOTE | 2024-05-10 07:17 | CA ---
Transthoracic Echo Report Name: Ernst Lechuga Age: 69 Gender: M : 1955 Exam Date: 05/09/2024 14:13 Exam Location: [facility] Ht (in): 67 Wt (lb): 195 Ordering Physician: Emmanuel Yo MD Attending/Referring Phys: Deburrer Strip Marily Gandhi RDCS Procedure CPT: Indications: I49.3 PVC I35.1 AORTIC INSUFF I34.0 MITRAL INSUFF Cardiac Hx: AOV REPLACED Technical Quality: Good Contrast 1: Total Dose (mL): Contrast 2: Total Dose (mL): MEASUREMENTS (Male / Female) Normal Values 2D ECHO LV Diastolic Diameter PLAX 4.9 cm 4.2 - 5.9 / 3.9 - 5.3 cm LV Systolic Diameter PLAX 3.0 cm IVS Diastolic Thickness 1.3 cm 0.6 - 1.0 / 0.6 - 0.9 cm LVPW Diastolic Thickness 1.2 cm 0.6 - 1.0 / 0.6 - 0.9 cm LV Relative Wall Thickness 0.5 RV Internal Dim ED PLAX 4.5 cm LVOT Diameter 2.7 cm LA Systolic Diameter LX 3.8 cm 3.0 - 4.0 / 2.7 - 3.8 cm LV Diastolic Volume MOD 4C 119.2 cm??? LV Systolic Volume MOD 4C 59.8 cm??? LV Ejection Fraction MOD 4C 49.9 % LV Cardiac Index MOD 4C 1778.5 cm???/min???m??? LV Diastolic Length 4C 10.2 cm LV Systolic Length 4C 8.4 cm LV Diastolic Volume MOD 2C 86.2 cm??? LV Systolic Volume MOD 2C 41.7 cm??? LV Ejection Fraction MOD 2C 51.7 % LV Cardiac Index MOD 2C 1333.7 cm???/min???m??? LV Diastolic Length 2C 9.8 cm LV Systolic Length 2C 7.9 cm LA Volume 60.5 cm??? 18 - 58 / 22 - 52 cm??? LA Volume Index 29.2 cm???/m??? 16 - 28 cm???/m??? M-MODE Aortic Root Diameter MM 3.4 cm DOPPLER AV Peak Velocity 213.8 cm/s AV Peak Gradient 18.3 mmHg AV Mean Velocity 144.8 cm/s AV Mean Gradient 9.4 mmHg AV Velocity Time Integral 46.5 cm MV Area PHT 1.6 cm??? Mitral E Point Velocity 53.0 cm/s Mitral A Point Velocity 67.0 cm/s Mitral E to A Ratio 0.8 MV Deceleration Time 480.8 ms TR Peak Velocity 159.4 cm/s TR Peak Gradient 10.2 mmHg Right Ventricular Systolic Press 15.2 mmHg FINDINGS Left Ventricle Left ventricular ejection fraction is estimated at 50-55 %. Left ventricular cavity size normal. Mildly increased septal wall thickness. No obvious regional wall motion abnormalities. Right Ventricle Severe right ventricular dilatation. Right ventricular systolic pressure within normal limits. Right Atrium Normal right atrial size. No right atrial thrombus or mass seen. Left Atrium Mildly increased left atrial volume. No left atrial thrombus or mass present. Mitral Valve Structurally normal mitral valve. No evidence for mitral valve prolapse. No mitral stenosis. Mild mitral regurgitation. Aortic Valve Normal functioning Biprosthetic AOV with mnean gradient of 9 mmHg. Thickened aortic valve without stenosis. Trace to mild aortic regurgitation. Tricuspid Valve Structurally normal tricuspid valve. Trace to mild tricuspid regurgitation. Pulmonic Valve Pulmonic valve not well visualized. Pericardium No pericardial or pleural effusion. Aorta Normal size aortic root and proximal ascending aorta. CONCLUSIONS Technically difficult study with poorly visualized endocardium Normal LV systolic function Aortic sclerosis with mild stenosis and mild insufficiency No pericardial effusion Normal pulmonary artery systolic Previewed by: Dr. Logan Woodruff MD (Electronically Signed) Final Date: 10 May 2024 07:16
== END | disposition home or self-care (01) ==
LOC: RADECHMAIN 13:53
PROVIDERS: ATTEND Internal Medicine
DX: I49.3 Ventricular premature depolarization (principal); I50.32 Chronic diastolic (congestive) heart failure; I35.1 Nonrheumatic aortic (valve) insufficiency; I34.0 Nonrheumatic mitral (valve) insufficiency; I07.1 Rheumatic tricuspid insufficiency
CPT/HCPCS: 84153; 93306